=== PATIENT | male | born 1955 | race Caucasian/White ===

== ENCOUNTER 2021-11-29 09:07 | Inpatient (IN) | payer MEDICARE, OTHER ==
[2021-11-29] MEDS ORDERED: IPRATROPIUM BROM 0.5MG/2.5ML ONE (09:39)
[2021-11-29] MEDS ORDERED: METHYLPREDNISOLONE 125 MG INJ ONE (09:39)
[2021-11-29] MEDS ORDERED: ALBUTEROL 2.5 MG/3 ML NEB SOL ONE (09:39)
[2021-11-29] MEDS ORDERED: FAMOTIDINE 20 MG/2 ML VIAL IV ONE ×2 (09:40→21:00)
[2021-11-29] MEDS ORDERED: Levofloxacin500mg IV 500 MG/100 ML BAG IV ONE (09:40)
[2021-11-29 09:58] LABS: Absolute Lymphocytes (CBC) 0.8 K/uL (0.7-4.9); Hematocrit 37.4 % (39.6-49.0); Lymphocytes % 16.2 % (15.3-44.8); MPV 8.5 fL (7.6-11.3); RBC Red Blood Cell Count 4.53 M/uL (4.33-5.43)
[2021-11-29 10:17] LABS: ALT/SGPT 25 U/L (12-78); AST/SGOT 18 U/L (15-37); Albumin 3.1 g/dL (3.4-5.0); Alkaline Phosphatase 78 U/L (45-117); BUN Blood Urea Nitrogen 17 mg/dL (7-18); Bicarbonate 28 mmol/L (21-32); Bilirubin Direct 0.2 mg/dL (0-0.2); Bilirubin Total 0.4 mg/dL (0.2-1.0); Glucose Level 106 mg/dL (74-106); Magnesium 1.9 mg/dL (1.8-2.4); NT PRO-BNP 55 pg/mL (<125); Potassium 4.2 mmol/L (3.5-5.1); Protein, Total 7.1 g/dL (6.4-8.2); Sodium Level 138 mmol/L (136-145); Troponin High Sensitivity 8.3 pg/mL (<58.9)
--- NOTE | 2021-11-29 10:33 | ER ---
Nurse's Notes [facility] Name: Fuentes Yarbrough Jr Age: 66 yrs Sex: Male : 1955 Arrival Date: 11/29/2021 Time: 09:08 Bed 17 Private MD: Diagnosis: COPD/ Chronic obstructive pulmonary disease with (acute) exacerbation;Hypoxemia;Coronavirus infection, unspecified;Pneumonia due to SARS-associated coronavirus Presentation: 11/29 09:12 Chief complaint: Patient states: SOB and nonproductive cough x 1 week ago. Tachypnea aa5 noted during triage. 09:12 Onset of symptoms was November 2021. aa5 09:12 Acuity: DANAY 2 aa5 09:12 Initial Sepsis Screen: Does the patient meet any 2 criteria? RR > 20 per min. HR > 90 aa5 bpm. Yes Does the patient have a suspected source of infection? Yes: If YES to both, name of provider notified: Luís Shepherd MD. Risk Assessment: Do you want to hurt yourself or someone else? Patient reports no desire to harm self or others. 09:12 Coronavirus screen: cough unrelated to allergies, shortness of breath. Ebola Screen: No aa5 symptoms or risks identified at this time. 09:12 Method Of Arrival: Ambulatory aa5 Historical: - Allergies: 09:36 No Known Allergies; aa5 - PMHx: 09:36 COPD; aa5 - Immunization history:: Client reports receiving the 2nd dose of the Covid vaccine, Flu vaccine is up to date. - Social history:: Smoking status: Patient/guardian denies using tobacco. Screenin:35 Abuse screen: Denies threats or abuse. Denies injuries from another. Nutritional ww screening: No deficits noted. Tuberculosis screening: No symptoms or risk factors identified. Fall Risk None identified. Assessment: 09:35 General: Appears uncomfortable, Behavior is cooperative. Pain: Complains of pain in ww back. Neuro: Level of Consciousness is awake, alert, obeys commands, Oriented to person, place, time, situation, Moves all extremities. Speech is normal. Cardiovascular: Capillary refill Patient's skin is warm and dry. Rhythm is regular Chest pain is denied. Respiratory: Airway is patent Respiratory effort is labored, Respiratory pattern is regular, Breath sounds are coarse. GI: No signs and/or symptoms were reported involving the gastrointestinal system. Abdomen is round non-distended. EENT: No signs and/or symptoms were reported regarding the EENT system. Derm: Skin is intact, Skin is pink, warm \T\ dry. 10:28 Reassessment: Patient appears in no apparent distress at this time. No changes from ww previously documented assessment. Patient and/or family updated on plan of care and expected duration. Pain level reassessed. Patient is alert, oriented x 3, equal unlabored respirations, skin warm/dry/pink. Dr. Shepherd at bedside, informed patient of being admitted. 11:34 Reassessment: Patient appears in no apparent distress at this time. No changes from ww previously documented assessment. Patient and/or family updated on plan of care and expected duration. Pain level reassessed. Patient is alert, oriented x 3, equal unlabored respirations, skin warm/dry/pink. Hospitalist at bedside. 12:57 Reassessment: Patient appears in no apparent distress at this time. No changes from ww previously documented assessment. Patient and/or family updated on plan of care and expected duration. Pain level reassessed. Patient is alert, oriented x 3, equal unlabored respirations, skin warm/dry/pink. requesterd lunch tray. Patient informed. 13:34 Reassessment: Patient appears in no apparent distress at this time. No changes from ww previously documented assessment. Patient and/or family updated on plan of care and expected duration. Pain level reassessed. Patient is alert, oriented x 3, equal unlabored respirations, skin warm/dry/pink. 14:24 Reassessment: Patient appears in no apparent distress at this time. No changes from ww previously documented assessment. Patient and/or family updated on plan of care and expected duration. Pain level reassessed. Patient is alert, oriented x 3, equal unlabored respirations, skin warm/dry/pink. Patients back is bothering him from the bed, place patient in bedside side with table in front, eating his lunch. 15:10 Reassessment: Patient appears in no apparent distress at this time. No changes from ww previously documented assessment. Patient and/or family updated on plan of care and expected duration. Pain level reassessed. Patient is alert, oriented x 3, equal unlabored respirations, skin warm/dry/pink. 16:51 Reassessment: Patient appears in no apparent distress at this time. No changes from ww previously documented assessment. Patient and/or family updated on plan of care and expected duration. Pain level reassessed. Patient is alert, oriented x 3, equal unlabored respirations, skin warm/dry/pink. Report called to Lyndsey, patient going to room 223. Vital Signs: 09:12 BP 108 / 55; Pulse 100; Resp 30 S; Temp 98.9(O); Pulse Ox 87% on R/A; Weight 105.69 kg aa5 (R); Height 5 ft. 10 in. (177.80 cm) (R); 09:15 BP 108 / 55; Pulse 89; Resp 22; Pulse Ox 94% ; ww 09:19 Resp 24 S; Pulse Ox 95% on 2 lpm NC; aa5 10:46 BP 99 / 70; Pulse 91; Resp 16; Pulse Ox 96% on 2 lpm NC; ww 11:00 BP 125 / 70; Pulse 95; Resp 20; Pulse Ox 92% on 2 lpm NC; ww 12:30 BP 98 / 63; Pulse 91; Resp 17; Pulse Ox 94% on 3 lpm NC; ww 13:00 BP 102 / 65; Pulse 81; Resp 19; Pulse Ox 94% on R/A; ww 14:30 BP 108 / 59; Pulse 75; Resp 16; Pulse Ox 94% on 3 lpm NC; ww 15:11 BP 126 / 76; Pulse 90; Resp 17; Pulse Ox 94% on 2 lpm NC; ww 09:12 Body Mass Index 33.43 (105.69 kg, 177.80 cm) aa5 ED Course: 09:08 Patient arrived in ED. am2 09:12 Arm band placed on. aa5 09:14 Luís Shepherd MD is Attending Physician. [facility] 09:26 Breanna Das, RN is Primary Nurse. ww 09:33 Triage completed. aa5 09:35 Inserted saline lock: 20 gauge in left antecubital area, using aseptic technique. Blood ww collected. 09:53 EKG done, by ED staff, reviewed by Luís Shepherd MD COVID swab sent to lab. zm 09:54 Patient has correct armband on for positive identification. Placed in gown. Bed in low zm position. Call light in reach. Side rails up X2. Warm blanket given. Pillow given. front desk monitor on. Pulse ox on. NIBP on. 10:19 Second set of blood cultures drawn. ww 10:27 Yonny Pepe is Hospitalizing Provider. [facility] 10:54 XRAY Chest (1 view) In Process Unspecified. EDVA 16:51 No provider procedures requiring assistance completed. Patient admitted, IV remains in ww place. Administered Medications: 09:45 Drug: Pepcid (famotidine) 20 mg Route: IVP; Site: left antecubital; ww 09:50 Drug: SOLU-Medrol (methylPrednisoLONE) 125 mg Route: IVP; Site: left antecubital; ww 09:52 Drug: Albuterol - atroVENT (ipratropium) (3:1) (2.5 mg - 0.5 mg) 3 ml Route: Nebulizer; ww 10:24 Drug: levofloxacin 500 mg Volume: 100 ml; Route: IVPB; Infused Over: 60 mins; Site: ww left antecubital; 10:42 Drug: Xopenex (levalbuterol) 1.25 mg Route: Inhalation; jl7 10:43 Drug: fentaNYL (PF) 50 mcg Route: IVP; Site: left antecubital; jl7 10:43 Drug: Zofran (Ondansetron) 4 mg Route: IVP; Site: left antecubital; jl7 12:29 Drug: Magnesium Sulfate 2 grams Route: IVPB; Infused Over: 2 hrs; Site: left ww antecubital; 12:29 Drug: Lovenox (enoxaparin) 40 mg Route: Sub-Q; Site: left lower abdomen; ww Outcome: 10:33 Decision to Hospitalize by Provider. [facility] 16:51 Admitted to Med/surg room 223, with oxygen, with chart, Report called to Lyndsey 16:51 Condition: stable 16:51 Instructed on the need for admit. 18:03 Patient left the ED. ww Signatures: Dispatcher [employer] EDMS Luís Shepherd MD MD cha Calderon, Audri, RN RN aa5 Vida Yancey RN RN jl7 Xiao Uriostegui am2 Breanna Das RN RN Eleonora Serra Corrections: (The following items were deleted from the chart) 09:37 09:12 Initial Sepsis Screen: Does the patient meet any 2 criteria? RR > 20 per min. HR aa5 > 90 bpm. Yes Does the patient have a suspected source of infection? Yes: aa5
--- NOTE | 2021-11-29 10:34 | EDPHYS ---
Physician Documentation [facility] Name: Fuentes Yarbrough Jr Age: 66 yrs Sex: Male : 1955 Arrival Date: 11/29/2021 Time: 09:08 Bed 17 Private MD: ED Physician Luís Shepherd HPI: 11/29 10:23 This 66 yrs old Male presents to ER via Ambulatory with complaints of pilar Breathing Difficulty. 10:23 The patient has shortness of breath at rest, with light activity. Onset: The pilar symptoms/episode began/occurred 3 day(s) ago. Duration: The symptoms are continuous, and are steadily getting worse. The patient's shortness of breath is aggravated by coughing, supine position, talking, walking, is alleviated by elevating head, nebulizer treatment, application of supplemental oxygen. Associated signs and symptoms: Pertinent positives: non-productive cough. Severity of symptoms: At their worst the symptoms were moderate in the emergency department the symptoms are unchanged. The patient has experienced similar episodes in the past, multiple times. Historical: - Allergies: 09:36 No Known Allergies; aa5 - PMHx: 09:36 COPD; aa5 - Immunization history:: Client reports receiving the 2nd dose of the Covid vaccine, Flu vaccine is up to date. - Social history:: Smoking status: Patient/guardian denies using tobacco. ROS: 10:23 Constitutional: Negative for fever, chills, and weight loss, Eyes: Negative for injury, pilar pain, redness, and discharge, ENT: Negative for injury, pain, and discharge, Neck: Negative for injury, pain, and swelling, Cardiovascular: Negative for chest pain, palpitations, and edema, Abdomen/GI: Negative for abdominal pain, nausea, vomiting, diarrhea, and constipation, Back: Negative for injury and pain, : Negative for injury, bleeding, discharge, and swelling, MS/Extremity: Negative for injury and deformity, Skin: Negative for injury, rash, and discoloration, Neuro: Negative for headache, weakness, numbness, tingling, and seizure, Psych: Negative for depression, anxiety, suicide ideation, homicidal ideation, and hallucinations, Allergy/Immunology: Negative for hives, rash, and allergies, Endocrine: Negative for neck swelling, polydipsia, polyuria, polyphagia, and marked weight changes, Hematologic/Lymphatic: Negative for swollen nodes, abnormal bleeding, and unusual bruising. 10:23 Respiratory: Positive for cough, with no reported sputum, shortness of breath, at rest. Exam: 10:23 Constitutional: This is a well developed, well nourished patient who is awake, alert, pilar and in no acute distress. Head/Face: Normocephalic, atraumatic. Eyes: Pupils equal round and reactive to light, extra-ocular motions intact. Lids and lashes normal. Conjunctiva and sclera are non-icteric and not injected. Cornea within normal limits. Periorbital areas with no swelling, redness, or edema. ENT: Nares patent. No nasal discharge, no septal abnormalities noted. Tympanic membranes are normal and external auditory canals are clear. Oropharynx with no redness, swelling, or masses, exudates, or evidence of obstruction, uvula midline. Mucous membranes moist. Neck: Trachea midline, no thyromegaly or masses palpated, and no cervical lymphadenopathy. Supple, full range of motion without nuchal rigidity, or vertebral point tenderness. No Meningismus. Chest/axilla: Normal chest wall appearance and motion. Nontender with no deformity. No lesions are appreciated. Cardiovascular: Regular rate and rhythm with a normal S1 and S2. No gallops, murmurs, or rubs. Normal PMI, no JVD. No pulse deficits. Abdomen/GI: Soft, non-tender, with normal bowel sounds. No distension or tympany. No guarding or rebound. No evidence of tenderness throughout. Back: No spinal tenderness. No costovertebral tenderness. Full range of motion. Male : Normal genitalia with no discharge or lesions. Skin: Warm, dry with normal turgor. Normal color with no rashes, no lesions, and no evidence of cellulitis. MS/ Extremity: Pulses equal, no cyanosis. Neurovascular intact. Full, normal range of motion. Neuro: Awake and alert, GCS 15, oriented to person, place, time, and situation. Cranial nerves II-XII grossly intact. Motor strength 5/5 in all extremities. Sensory grossly intact. Cerebellar exam normal. Normal gait. Psych: Awake, alert, with orientation to person, place and time. Behavior, mood, and affect are within normal limits. 10:23 Respiratory: the patient does not display signs of respiratory distress, Respirations: labored breathing, that is mild, Breath sounds: decreased breath sounds, that are moderate, are scattered, rhonchi, that are mild, stridor, is not appreciated, wheezing: inspiratory expiratory is heard diffusely. 11:22 ECG was reviewed by the Attending Physician. [facility] Vital Signs: 09:12 BP 108 / 55; Pulse 100; Resp 30 S; Temp 98.9(O); Pulse Ox 87% on R/A; Weight 105.69 kg aa5 (R); Height 5 ft. 10 in. (177.80 cm) (R); 09:15 BP 108 / 55; Pulse 89; Resp 22; Pulse Ox 94% ; ww 09:19 Resp 24 S; Pulse Ox 95% on 2 lpm NC; aa5 10:46 BP 99 / 70; Pulse 91; Resp 16; Pulse Ox 96% on 2 lpm NC; ww 11:00 BP 125 / 70; Pulse 95; Resp 20; Pulse Ox 92% on 2 lpm NC; ww 12:30 BP 98 / 63; Pulse 91; Resp 17; Pulse Ox 94% on 3 lpm NC; ww 13:00 BP 102 / 65; Pulse 81; Resp 19; Pulse Ox 94% on R/A; ww 14:30 BP 108 / 59; Pulse 75; Resp 16; Pulse Ox 94% on 3 lpm NC; ww 15:11 BP 126 / 76; Pulse 90; Resp 17; Pulse Ox 94% on 2 lpm NC; ww 09:12 Body Mass Index 33.43 (105.69 kg, 177.80 cm) aa MDM: 09:14 Patient medically screened. [facility] 10:25 Differential diagnosis: asthma, Bronchitis CHF exacerbation, Chronic Obstructive pilar Pulmonary Disease obstructed airway, bronchitis, flu, URI, pneumonia, pulmonary edema, reactive airway disease. Antibiotic administration: Levaquin given. The patient's Wells Deep Vein Thrombosis Score was calculated as follows: Heart Rate >100 BPM (1.5 Pts) Total Score: 0-2 Pts- Low Risk. The patient's pulmonary embolism risk score was calculated as follows: Total Score: 0-2 points. This patient was found to be at low risk for a pulmonary embolism by using the Well's assessment criteria. Immunization status: Pneumococcal vaccine: Influenza vaccine: Data reviewed: vital signs, nurses notes, lab test result(s), EKG, radiologic studies, plain films. Data interpreted: director post: rate is 100 beats/min, rhythm is regular, Pulse oximetry: on room air is 95 %. Test interpretation: by ED physician or midlevel provider: ECG, plain radiologic studies. Counseling: I had a detailed discussion with the patient and/or guardian regarding: the historical points, exam findings, and any diagnostic results supporting the discharge/admit diagnosis, lab results, radiology results, the need for further work-up and treatment in the hospital. 11/29 09:16 Order name: Basic Metabolic Panel; Complete Time: 11:18 11/29 09:16 Order name: CBC with Diff; Complete Time: 11:18 [facility] 11/29 09:16 Order name: LFT's; Complete Time: 11:18 11/29 09:16 Order name: Magnesium; Complete Time: 11:18 11/29 09:16 Order name: NT PRO-BNP; Complete Time: 11:18 11/29 09:16 Order name: PT-INR; Complete Time: 11:18 11/29 09:16 Order name: Troponin HS; Complete Time: 11:18 [facility] 11/29 09:16 Order name: XRAY Chest (1 view); Complete Time: 11:18 [facility] 11/29 09:16 Order name: Blood Culture Adult (2) 11/29 09:16 Order name: Lactate; Complete Time: 11:18 11/29 09:16 Order name: COVID-19/FLU A+B/RSV (Document "Date of Onset" if Symptomatic); Complete [facility] Time: 14:22 11/29 09:16 Order name: EKG; Complete Time: 09:17 11/29 09:16 Order name: Cardiac monitoring; Complete Time: 09:52 11/29 09:16 Order name: EKG - Nurse/Tech; Complete Time: 09:52 11/29 09:16 Order name: IV Saline Lock; Complete Time: 09:52 11/29 09:16 Order name: Labs collected and sent; Complete Time: 09:52 11/29 09:16 Order name: O2 Per Protocol; Complete Time: 09:52 11/29 09:16 Order name: O2 Sat Monitoring; Complete Time: 09:53 11/29 13:51 Order name: Diet Heart Healthy; Complete Time: 13:52 ww EC:22 Rate is 94 beats/min. Rhythm is regular. QRS [place] is Normal. MS interval is normal. QRS pilar interval is normal. QT interval is normal. No Q waves. T waves are Normal. No ST changes noted. Clinical impression: NSR w/ Non-specific ST/T Changes and No evidence of ischemia. Interpreted by me. Reviewed by me. Administered Medications: 09:45 Drug: Pepcid (famotidine) 20 mg Route: IVP; Site: left antecubital; ww 09:50 Drug: SOLU-Medrol (methylPrednisoLONE) 125 mg Route: IVP; Site: left antecubital; ww 09:52 Drug: Albuterol - atroVENT (ipratropium) (3:1) (2.5 mg - 0.5 mg) 3 ml Route: Nebulizer; ww 10:24 Drug: levofloxacin 500 mg Volume: 100 ml; Route: IVPB; Infused Over: 60 mins; Site: ww left antecubital; 10:42 Drug: Xopenex (levalbuterol) 1.25 mg Route: Inhalation; jl7 10:43 Drug: fentaNYL (PF) 50 mcg Route: IVP; Site: left antecubital; jl7 10:43 Drug: Zofran (Ondansetron) 4 mg Route: IVP; Site: left antecubital; jl7 12:29 Drug: Magnesium Sulfate 2 grams Route: IVPB; Infused Over: 2 hrs; Site: left ww antecubital; 12:29 Drug: Lovenox (enoxaparin) 40 mg Route: Sub-Q; Site: left lower abdomen; ww Disposition Summary: 11/29/21 10:33 Hospitalization Ordered Hospitalization Status: Inpatient Admission pilar Provider: Yonny Pepe cha Location: Telemetry/MedSurg (Inpatient) pilar Condition: Fair pilar Problem: new pilar Symptoms: have improved pilar Bed/Room Type: Standard pilar Room Assignment: 223(11/29/21 16:26) ww Diagnosis - COPD/ Chronic obstructive pulmonary disease with (acute) exacerbation pilar - Hypoxemia pilar - Coronavirus infection, unspecified pilar - Pneumonia due to SARS-associated coronavirus pilar Forms: - Medication Reconciliation Form pilar - SBAR form pilar Signatures: Dispatcher [employer] EDLauren Ansari Corey, MD MD cha Calderon, Audri, RN RN aa5 Vida Yancey RN RN jl7 Breanna Das RN RN ww Corrections: (The following items were deleted from the chart) 15:59 10:33 [facility] 16:26 15:59 [facility]
[2021-11-29] MEDS ORDERED: LEVALBUTEROL 1.25 MG/3 ML NEB ONE (10:37)
[2021-11-29] MEDS ORDERED: ONDANSETRON 4 MG/2 ML VIAL ONE (10:37)
[2021-11-29] MEDS ORDERED: FENTANYL CITR 100 MCG/2 ML ONE (10:37)
[2021-11-29] MEDS ORDERED: Magnesium Sulfate 2gm IVPB 2 G/50 ML BAG IV ONE (10:38)
--- NOTE | 2021-11-29 11:13 | RAD REPORT ---
EXAM DESCRIPTION: RAD - Chest Single View - 11/29/2021 10:53 am CLINICAL HISTORY: COUGH COMPARISON: Chest Pa And Lat (2 Views) dated 05/28/2021; Chest Pa And Lat (2 Views) dated 09/11/2020; C HEST SINGLE VIEW dated 06/22/2015; CHEST SINGLE VIEW dated 10/17/2014 FINDINGS: Lines: None. Lungs: No evidence of edema or pneumonia. Pleural: No significant pleural effusions or pneumothorax. Cardiac: The heart size is within normal limits. Bones: No acute fractures. Other: IMPRESSION: No acute cardiopulmonary disease.
[2021-11-29 11:48] LABS: SARS-COV-2 RT PCR POSITIVE (NEGATIVE)
--- NOTE | 2021-11-29 12:18 | P.HP ---
Certification for Inpatient Patient admitted to: Observation With expected LOS: <2 Midnights Practitioner: I am a practitioner with admitting privileges, knowledge of patient current condition, hospital course, and medical plan of care. Services: Services provided to patient in accordance with Admission requirements found in Title 42 Section 412.3 of the Code of Federal Regulations Patient History Date of Service: 11/29/21 Reason for admission: Shortness of breath History of Present Illness: 66-year-old gentleman with a history of COPD presented to the emergency department with a complaint of progressive shortness of breath, coughing and wheezing. Patient reported nonproductive cough. Symptoms preceded by nasal congestion, flulike symptoms. Patient mentioned he tested positive for rapid Covid test at home. He stated he is fully vaccinated for COVID and has received flu vaccine this season. Patient was hypoxic on room air with oxygen saturation of 87% on arrival to the ED. Oxygen saturation improved to 95% on 2 L oxygen by nasal cannula. Chest x-ray demonstrated no acute disease. Covid PCR test is pending. Patient is hospitalized for further management. Allergies No Known Allergies Allergy (Verified 05/28/21 13:17) Home Medications: Albuterol Sulfate [Proair Hfa] 8.5 gm IH DAILY PRN 06/22/15 Budesonide/Formoterol Fumarate [Symbicort 160-4.5 Mcg Inhaler] 1 puff IH DAILY 06/22/15 Ipratropium/Albuterol Sulfate [Iprat-Albut 0.5-3(2.5) mg/3 ml] 3 ml IH Q4HP PRN 06/22/15 Fluticasone/Umeclidin/Vilanter [Trelegy Ellipta 200-62.5-25] 1 each IH DAILY 05/28/21 predniSONE [Deltasone] 10 mg PO DAILY 05/28/21 - Past Medical/Surgical History Diabetic: No -: COPD -: lumbar herniations -: abd hernia - Family History Mother -: Lung disease Notes: emphysema Father -: Lung disease Notes: emphysema, TB Sister -: Cancer Notes: breast CA - Social History Alcohol use: No CD- Drugs: No Caffeine use: Yes Review of Systems Other: Patient denies any fever. He denies any chest pain, no nausea or vomiting, no abdominal pain. Except as documented, all other systems reviewed and negative. Physical Examination - Physical Exam General: Alert, In no apparent distress, Oriented x3 HEENT: Normocephalic, Mucous membr. moist/pink, Sclerae nonicteric Neck: Supple, JVD not distended Respiratory: Normal air movement, Other (Mild scattered wheezes) Cardiovascular: No edema, Regular rate/rhythm, Normal S1 S2 Gastrointestinal: Normal bowel sounds, Soft and benign, Non-distended, No tenderness Musculoskeletal: No swelling, No tenderness Integumentary: No rashes, No erythema, No cyanosis Neurological: Normal speech, Normal strength at 5/5 x4 extr, Normal reflexes 2+, Normal affect Urinary: Bladder distention - Studies Laboratory Data (last 24 hrs) 11/29/21 09:47: PT 11.0, INR 1.00 11/29/21 09:47: WBC 5.1, Hgb 12.0 L, Hct 37.4 L, Plt Count 173 11/29/21 09:47: Sodium 138, Potassium 4.2, BUN 17, Creatinine 0.84, Glucose 106, Magnesium 1.9, Total Bilirubin 0.4, AST 18, ALT 25, Alkaline Phosphatase 78 Assessment and Plan - Problems (Diagnosis) (1) COVID-19 virus infection Current Visit: Yes Status: Acute (2) Acute respiratory failure with hypoxia Current Visit: Yes Status: Acute (3) COPD exacerbation Onset Date: 06/23/15 Current Visit: No Status: Acute - Plan Place patient under observation on the medical floor. Treat for COPD exacerbation with bronchodilators and IV steroids. No indication for antibiotics at this time. Patient has upper respiratory infection from COVID-19 infection. Chest x-ray shows no acute infiltrate but he is hypoxic. Steroid for COVID-19 infection. Consult to pulmonary. Wean off oxygen as possible. - Advance Directives Does patient have a Living Will: No Does patient have a Durable POA for Healthcare: No
[2021-11-29] MEDS ORDERED: ENOXAPARIN 40 MG/0.4 ML SQ ONE (12:23)
[2021-11-29] MEDS ORDERED: ONDANSETRON 4 MG/2 ML VIAL IV PRN (13:50)
[2021-11-29 15:41] VITALS: BMI 33.4
[2021-11-29] MEDS: METHYLPREDNISOLONE 40 MG INJ IV SCH ×2 (18:21→23:51)
[2021-11-29] MEDS: ACETAMINOPHEN 500 MG TAB PO PRN (18:21)
[2021-11-29] MEDS: ALBUTEROL 2.5 MG/3 ML NEB SOL NEB PRN (19:15)
[2021-11-29] MEDS: IPRATROPIUM BROM 0.5MG/2.5ML NEB PRN (19:15)
[2021-11-29] MEDS ORDERED: TRAZODONE 150 MG TAB PO PRN (21:00)
[2021-11-29] MEDS: TRAZODONE 50 MG TABLET PO PRN (21:47)
[2021-11-30 04:40] LABS: Absolute Lymphocytes (CBC) 0.2 K/uL (0.7-4.9); Hematocrit 35.8 % (39.6-49.0); Lymphocytes % 13.5 % (15.3-44.8); MPV 8.8 fL (7.6-11.3)
[2021-11-30 05:08] LABS: Magnesium 2.4 mg/dL (1.8-2.4); Phosphorus 3.3 mg/dL (2.5-4.9); Potassium 4.7 mmol/L (3.5-5.1)
[2021-11-30 05:33] LABS: Blood Morphology Comment NOT SEEN (NOT SEEN); Platelet Estimate ADEQ; White Blood Cell Scan OK (OK)
[2021-11-30] MEDS: METHYLPREDNISOLONE 40 MG INJ IV SCH ×3 (06:30→16:20)
--- NOTE | 2021-11-30 06:46 | P.PN ---
Date of Service: 11/30/21 Subjective: reports minimal change, feels short of breath, wheezing, +cough unable to cough anything out, feels congested in chest ROS: 10 point ROS as noted above, otherwise negative Physical exam GEN: Alert, oriented, NAD HEENT: Normal conjunctiva, sclera anicteric CV: Regular rate and rhythm, no edema Pulm: crackles with b/l wheeze, Non-labored respirations on 3L NC ABD: Soft, nontender, nondistended Integumentary: No rashes Neuro: Normal speech, normal affect Problem List Acute on chronic hypoxemic respiratory failure secondary to COVID-19 pneumonia and COPD exacerbation Acute on chronic COPD exacerbation GERD on 3L NC, wean as tolerated patient uses 2 to 2.5L NC at nighttime at homem CRP elevated continue steroids for COVID and COPD continue nebs / bronchodilators Pulmonology consulted ambulate as tolerated WBC decreased, suspect secondary to COVID pneumonia repeat labs and CXR in AM VTE: lovenox Code: industrial engineering director Spent Managing Pts Care (In Minutes): 35
[2021-11-30 07:51] LABS: C-Reactive Protein 38.1 mg/L (<3.00)
[2021-11-30] MEDS: ENOXAPARIN 40 MG/0.4 ML SQ SCH (08:08)
[2021-11-30] MEDS: IPRATROPIUM BROM 0.5MG/2.5ML NEB PRN (08:34)
[2021-11-30] MEDS: ALBUTEROL 2.5 MG/3 ML NEB SOL NEB PRN ×2 (08:34→14:05)
[2021-11-30] MEDS: ACETAMINOPHEN 500 MG TAB PO PRN (11:08)
[2021-11-30] MEDS: PANTOPRAZOLE 40MG TABLET PO SCH (11:58)
[2021-11-30] MEDS ORDERED: TRAMADOL HCL 50 MG TAB PO PRN (12:00)
--- NOTE | 2021-11-30 12:36 | EKG ---
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
--- NOTE | 2021-11-30 12:45 | P.CNS ---
Date of Consult: 11/30/21 Reason for Consult: COPD exacerbation Chief Complaint: Shortness of breath History of Present Illness: Patient is 66 years of age a history of COPD admitted with worsening cough congestion shortness of breath for the past 2 weeks had prescribed some antibiotics continue to get worse and it appeared in the hospital he still wheezing quite a bit Allergies No Known Allergies Allergy (Verified 05/28/21 13:17) Home Medications: Albuterol Sulfate [Proair Hfa] 8.5 gm IH DAILY PRN 06/22/15 Ipratropium/Albuterol Sulfate [Iprat-Albut 0.5-3(2.5) mg/3 ml] 3 ml IH Q4HP PRN 06/22/15 predniSONE [Deltasone] 10 mg PO DAILY 05/28/21 Omeprazole [Prilosec] 40 mg PO DAILY 11/29/21 Trazodone [Desyrel] 150 mg PO BEDTIME PRN 11/29/21 traMADol HCL [Ultram*] 1 tab PO BID PRN 11/29/21 - Past Medical/Surgical History Diabetic: No -: COPD -: lumbar herniations -: abd hernia - Family History Mother Medical History: Lung disease Notes: emphysema Father Medical History: Lung disease Notes: emphysema, TB Sister Medical History: Cancer Notes: breast CA - Social History Smoking Status: Current some day smoker Alcohol use: No CD- Drugs: No Caffeine use: Yes Place of Residence: Home Review of Systems 10-point ROS is otherwise unremarkable Respiratory: Cough, Shortness of Breath Physical Examination Temp Pulse Resp BP Pulse Ox 97.7 F 76 18 116/64 96 11/30/21 12:00 11/30/21 12:00 11/30/21 12:00 11/30/21 12:00 11/30/21 12:00 General: Alert, Oriented x3, Mild distress Respiratory: Expiratory wheezes Cardiovascular: No edema, Regular rate/rhythm, Normal S1 S2 Gastrointestinal: Normal bowel sounds, Soft and benign Musculoskeletal: No clubbing, No swelling Integumentary: No rashes, No breakdown - Problems (1) COPD exacerbation Onset Date: 06/23/15 Current Visit: No Status: Acute Plan: Patient is 66 years of age admitted with COPD exacerbation failed outpatient therapy continue with steroids bronchodilators and levofloxacin sputum cultures chest x-ray shows COPD changes patient white count has decreased vital signs stable oxygenation satisfactory
[2021-11-30] MEDS: IPRATROPIUM BROM 0.5MG/2.5ML NEB SCH ×3 (13:00→20:40)
[2021-11-30 13:08] LABS: Urine Appearance Clear (Clear); Urine Bilirubin Negative (Negative); Urine Blood Negative (Negative); Urine Color Yellow (Yellow); Urine Glucose 3+ (Negative); Urine Protein 2+ (Negative); Urine Specific Gravity 1.025 (1.005-1.030); Urine pH 6.5 (5.0-7.0)
[2021-11-30] MEDS: levoFLOXacin 750 MG TAB PO SCH (13:13)
[2021-11-30 13:17] LABS: Urine Microscopic Reflex ORDER UMIC
[2021-11-30 13:41] LABS: Urine Bacteria <20 /HPF (NONE SEEN); Urine RBC NONE SEEN /HPF (NONE SEEN)
[2021-11-30] MEDS ORDERED: FAMOTIDINE 20 MG/2 ML VIAL IV ONE (21:00)
[2021-11-30] MEDS: TRAZODONE 50 MG TABLET PO PRN (21:39)
[2021-12-01] MEDS: METHYLPREDNISOLONE 40 MG INJ IV SCH ×2 (00:18→08:15)
[2021-12-01] MEDS: IPRATROPIUM BROM 0.5MG/2.5ML NEB SCH ×3 (02:00→08:32)
[2021-12-01] MEDS: ALBUTEROL 2.5 MG/3 ML NEB SOL NEB PRN (03:35)
[2021-12-01 03:49] LABS: Absolute Lymphocytes (CBC) 0.3 K/uL (0.7-4.9); Hematocrit 34.3 % (39.6-49.0); Lymphocytes % 3.7 % (15.3-44.8); MPV 9.1 fL (7.6-11.3); RBC Red Blood Cell Count 4.14 M/uL (4.33-5.43)
[2021-12-01 04:08] LABS: BUN Blood Urea Nitrogen 16 mg/dL (7-18); Bicarbonate 29 mmol/L (21-32); Ferritin 41.8 ng/mL (26-388); Glucose Level 164 mg/dL (74-106); Magnesium 2.2 mg/dL (1.8-2.4); Potassium 4.4 mmol/L (3.5-5.1); Sodium Level 138 mmol/L (136-145)
[2021-12-01 04:30] LABS: Blood Morphology Comment NOT SEEN (NOT SEEN); Platelet Estimate ADEQ
[2021-12-01] MEDS: PANTOPRAZOLE 40MG TABLET PO SCH (06:34)
[2021-12-01] MEDS: levoFLOXacin 750 MG TAB PO SCH (08:15)
[2021-12-01] MEDS: ENOXAPARIN 40 MG/0.4 ML SQ SCH (08:16)
--- NOTE | 2021-12-01 08:40 | P.DS ---
Admission Date: 11/30/21 Discharge Date: 12/01/21 Disposition: ROUTINE DISCHARGE Reason for Admission: Shortness of breath Consultations: Pulmonology - Dr. Stauffer Procedures: Problem List Acute on chronic hypoxemic respiratory failure secondary to COVID-19 pneumonia and COPD exacerbation Acute on chronic COPD exacerbation, on home O2 GERD Brief History of Present Illness: 66yo M, PMH: COPD on home O2 - 2L NC at night. Fully vaccinated for COVID. Presented to ED with progressively worsening SOB, cough, wheeze, and recent COVID+ home test. He was found to be hypoxic on room air to 87% in the ED and COVID+. He was admitted for COPD exacerbation and COVID-19 pneumonia. Hospital Course: Patient was found to have an acute COPD exacerbation and mild COVID-19 pneumonia. He improved with nebulizers and steroids. Inflammatory markers improved. Pulmonology was consulted and recommended addition of levaquin. Discharged home with levaquin and prednisone. To continue using home oxygen as needed, goal oxygen saturation 92-94%. Follow up with Dr. Stauffer in ~1 week. Vital Signs/Physical Exam: Temp Pulse Resp BP Pulse Ox 98.3 F 78 16 139/62 97 12/01/21 04:00 12/01/21 04:00 12/01/21 04:00 12/01/21 04:00 12/01/21 04:00 Physical exam GEN: Alert, oriented, NAD HEENT: Normal conjunctiva, sclera anicteric CV: Regular rate and rhythm, no edema Pulm: minimal wheeze, good air movement, non-labored respirations on 2L NC ABD: Soft, nontender, nondistended Neuro: Normal speech, normal affect Laboratory Data at Discharge: WBC 6.9 K/uL (4.3-10.9) D 12/01/21 03:27 Hgb 11.1 g/dL (13.6-17.9) L 12/01/21 03:27 Hct 34.3 % (39.6-49.0) L 12/01/21 03:27 Plt Count 206 K/uL (152-406) D 12/01/21 03:27 PT 11.0 SECONDS (9.5-12.5) 11/29/21 09:47 INR 1.00 11/29/21 09:47 Sodium 138 mmol/L (136-145) 12/01/21 03:27 Potassium 4.4 mmol/L (3.5-5.1) 12/01/21 03:27 BUN 16 mg/dL (7-18) 12/01/21 03:27 Creatinine 0.78 mg/dL (0.55-1.3) 12/01/21 03:27 Glucose 164 mg/dL (74-106) H 12/01/21 03:27 Phosphorus 3.3 mg/dL (2.5-4.9) 11/30/21 04:17 Magnesium 2.2 mg/dL (1.8-2.4) 12/01/21 03:27 Total Bilirubin 0.4 mg/dL (0.2-1.0) 11/29/21 09:47 AST 18 U/L (15-37) 11/29/21 09:47 ALT 25 U/L (12-78) 11/29/21 09:47 Alkaline Phosphatase 78 U/L (45-117) 11/29/21 09:47 Home Medications: Albuterol Sulfate [Proair Hfa] 8.5 gm IH DAILY PRN 06/22/15 Ipratropium/Albuterol Sulfate [Iprat-Albut 0.5-3(2.5) mg/3 ml] 3 ml IH Q4HP PRN 06/22/15 predniSONE [Deltasone*] 10 mg PO DAILY 05/28/21 Omeprazole [Prilosec] 40 mg PO DAILY 11/29/21 Trazodone [Desyrel*] 150 mg PO BEDTIME PRN 11/29/21 traMADol HCL [Ultram*] 1 tab PO BID PRN 11/29/21 Benzonatate [Tessalon Perle] 200 mg PO Q8H PRN 5 Days #15 cap 12/01/21 levoFLOXacin [Levaquin*] 750 mg PO DAILY 6 Days #6 tab 12/01/21 predniSONE [Prednisone] 20 mg PO SEECOM 8 Days #12 tablet 12/01/21 New Medications: levoFLOXacin [Levaquin*] 750 mg PO DAILY 6 Days #6 tab predniSONE [Prednisone] 20 mg PO SEECOM 8 Days #12 tablet Benzonatate [Tessalon Perle] 200 mg PO Q8H PRN 5 Days #15 cap PRN Reason: Cough Physician Discharge Instructions: Patient was found to have an acute COPD exacerbation and mild COVID-19 pneumonia. He improved with nebulizers and steroids. Inflammatory markers improved. Pulmonology was consulted and recommended addition of levaquin. Discharged home with levaquin and prednisone. To continue using home oxygen as needed, goal oxygen saturation 92-94%. Follow up with Dr. Stauffer in ~1 week. Followup: Tal Stauffer MD [ACTIVE - CAN ADMIT] - (Call to schedule appointment) Time spent managing pt's care (in minutes): 45
[2021-12-01 09:27] VITALS: BP 127/59; TEMP 97.1
[2021-12-01 09:59] VITALS: O2SAT 92
== END 2021-12-01 10:30 | disposition home or self-care (01) | DRG 177 ==
LOC: ER 09:07 → ERHOLD 11:57 → 2ND 17:15 → OBSVTOIN 11-30 12:23
PROVIDERS: ADMIT Internal Medicine; ATTEND Hospitalist
DX: U07.1 COVID-19 (principal); J12.82 Pneumonia due to coronavirus disease 2019; J96.21 Acute and chronic respiratory failure with hypoxia; J44.1 Chronic obstructive pulmonary disease with (acute) exacerbation; J44.0 Chronic obstructive pulmonary disease with (acute) lower respiratory infection; K21.9 Gastro-esophageal reflux disease without esophagitis; F17.200 Nicotine dependence, unspecified, uncomplicated; Z79.52 Long term (current) use of systemic steroids; Z79.899 Other long term (current) drug therapy; Z99.81 Dependence on supplemental oxygen
CPT/HCPCS: 0241U; 36415; 71045; 80048; 80076; 81003; 81015; 82728; 83605; 83735; 83880; 84100; 84484; 85025; 85610; 86140; 87040; 87070; 87205; 93005; 94640; 94760; 96372; 96374; 96375; 99285; G0378; J1650; J2405; J2920; J2930; J3010; J3475

== ENCOUNTER 2022-11-16 09:58 | Inpatient (IN) | payer MEDICARE ==
[2022-11-16] MEDS ORDERED: LEVALBUTEROL 1.25 MG/3 ML NEB ONE (10:16)
[2022-11-16] MEDS ORDERED: MAGNESIUM SULFATE 1 gm IVPB 1 GM/100 ML BAG IV ONE (10:16)
[2022-11-16] MEDS ORDERED: METHYLPREDNISOLONE 125 MG INJ ONE (10:16)
[2022-11-16 10:29] LABS: Absolute Lymphocytes (CBC) 0.5 K/uL (0.7-4.9); Hematocrit 35.7 % (39.6-49.0); Lymphocytes % 4.8 % (15.3-44.8); MCV 88.8 fL (80-100); MPV 8.4 fL (7.6-11.3); RBC Red Blood Cell Count 4.02 M/uL (4.33-5.43)
[2022-11-16 10:47] LABS: Potassium 4.6 mmol/L (3.5-5.1); Troponin High Sensitivity 6.2 pg/mL (<58.9)
[2022-11-16 11:11] LABS: SARS-COV-2 RT PCR NEGATIVE (NEGATIVE)
--- NOTE | 2022-11-16 11:48 | ER ---
Nurse's Notes [facility] Name: Fuentes Yarbrough Jr Age: 67 yrs Sex: Male : 1955 Arrival Date: 11/16/2022 Time: 10:04 Bed 3 Private MD: Diagnosis: COPD/ Chronic obstructive pulmonary disease with (acute) exacerbation;Hypoxia Presentation: 11/16 10:04 Chief complaint: EMS states: Sent from Dr. Stauffer's office for COPD exacerbation, pt sg5 c/o SOB and increased home O2 needs x 10 days. DuVicb in process. Coronavirus screen: Client presents with at least one sign or symptom that may indicate coronavirus-19. Standard/surgical mask placed on the client. Provider contacted for isolation considerations. Ebola Screen: No symptoms or risks identified at this time. Initial Sepsis Screen: Does the patient meet any 2 criteria? No. Patient's initial sepsis screen is negative. Does the patient have a suspected source of infection? No. Patient's initial sepsis screen is negative. Risk Assessment: Do you want to hurt yourself or someone else? Patient reports no desire to harm self or others. Onset of symptoms was November 06, 2022. 10:04 Method Of Arrival: EMS: [facility] sg5 10:04 Acuity: DANAY 2 sg5 Triage Assessment: 10:06 General: Appears in no apparent distress. Behavior is calm, cooperative. Pain: Pain sg5 currently is 5 out of 10 on a pain scale. EENT: No signs and/or symptoms were reported regarding the EENT system. Neuro: Level of Consciousness is awake, alert, obeys commands, Oriented to person, place, time, situation. Cardiovascular: Patient's skin is warm and dry. Respiratory: Reports shortness of breath at rest on exertion labored breathing Airway is patent Respiratory effort is labored, shallow, Respiratory pattern is regular, symmetrical. GI: No signs and/or symptoms were reported involving the gastrointestinal system. : No signs and/or symptoms were reported regarding the genitourinary system. Derm: Skin is pink, warm \T\ dry. Musculoskeletal: No signs and/or symptoms reported regarding the musculoskeletal system. Historical: - Allergies: 10:06 No Known Allergies; sg5 - PMHx: 10:06 COPD; sg5 - Immunization history:: Adult Immunizations up to date. - Social history:: Smoking status: Patient/guardian denies using tobacco. Screenin:08 [facility] ED Fall Risk Assessment (Adult) Score/Fall Risk Level 0 - 2 = Low Risk sg5 Oriented to surroundings, Maintained a safe environment. Abuse screen: Denies threats or abuse. Denies injuries from another. Nutritional screening: No deficits noted. Tuberculosis screening: No symptoms or risk factors identified. Assessment: 10:07 General: SEE TRIAGE ASSESSMENT. sg5 10:49 Reassessment: Patient and/or family updated on plan of care and expected duration. Pain hb level reassessed. Patient states symptoms have improved. Vital Signs: 10:04 BP 152 / 72; Pulse 81; Resp 15; Temp 97.8; Pulse Ox 98% on Nebulizer Mask; Weight sg5 108.86 kg; Height 5 ft. 11 in. ; Pain 5/10; 10:49 BP 133 / 76; Pulse 77; Resp 15; Pulse Ox 92% on R/A; hb 11:20 Pulse Ox 87% on R/A; hb 10:04 Body Mass Index 33.47 (108.86 kg, 180.34 cm) sg5 10:04 Pain Scale: Adult sg5 ED Course: 10:04 Patient arrived in ED. 5 10:04 Oleksandr Torrez PA is PHCP. [facility] 10:05 Babak Benavides MD is Attending Physician. [facility] 10:06 Triage completed. sg5 10:06 Arm band placed on. sg5 10:08 Patient has correct armband on for positive identification. sg5 10:10 Veronica Riley RN is Primary Nurse. sg5 10:49 XRAY Chest (1 view) Sent. hb 10:51 XRAY Chest (1 view) In Process Unspecified. EDMS 11:47 Farhad Doll MD is Hospitalizing Provider. [facility] Administered Medications: 10:11 Drug: MethylPrednisoLONE IVP 125 mg Route: IVP; Site: left hand; hb 10:11 Drug: Levalbuterol Inhalation 1.25 mg Route: Inhalation; hb 10:11 Drug: Magnesium Sulfate IVPB 1 grams Route: IVPB; Infused Over: 1 hrs; Site: left hand; hb Outcome: 11:48 Decision to Hospitalize by Provider. [facility] Signatures: Dispatcher [employer] Oleksandr Rabago PA PA jmm Baxter, Heather, RN RN hb Veronica Riley RN RN sg5 Corrections: (The following items were deleted from the chart) 10:54 10:49 BP 133 / 76; Pulse 77bpm; Resp 15bpm; Pulse Ox 93% RA; hb hb
--- NOTE | 2022-11-16 11:48 | EDPHYS ---
Physician Documentation [facility] Name: Fuentes Yarbrough Jr Age: 67 yrs Sex: Male : 1955 Arrival Date: 11/16/2022 Time: 10:04 Bed 3 Private MD: ED Physician Babak Benavides Historical: - Allergies: 11/16 10:06 No Known Allergies; sg5 - PMHx: 10:06 COPD; sg5 - Immunization history:: Adult Immunizations up to date. - Social history:: Smoking status: Patient/guardian denies using tobacco. Vital Signs: 10:04 BP 152 / 72; Pulse 81; Resp 15; Temp 97.8; Pulse Ox 98% on Nebulizer Mask; Weight sg5 108.86 kg; Height 5 ft. 11 in. ; Pain 5/10; 10:49 BP 133 / 76; Pulse 77; Resp 15; Pulse Ox 92% on R/A; hb 11:20 Pulse Ox 87% on R/A; hb 10:04 Body Mass Index 33.47 (108.86 kg, 180.34 cm) sg5 10:04 Pain Scale: Adult sg5 MDM: 10:05 Patient medically screened. [facility] 11/16 10:05 Order name: EKG; Complete Time: 10:05 [facility] 11/16 10:05 Order name: O2 Sat Monitoring; Complete Time: 10:13 [facility] 11/16 10:05 Order name: O2 Per Protocol; Complete Time: 10:13 [facility] 11/16 10:05 Order name: IV Saline Lock; Complete Time: 10:13 [facility] 11/16 10:05 Order name: Cardiac monitoring; Complete Time: 10:13 [facility] 11/16 10:05 Order name: EKG - Nurse/Tech; Complete Time: 10:49 [facility] 11/16 10:05 Order name: Labs collected and sent; Complete Time: 10:49 [facility] 11/16 10:05 Order name: XRAY Chest (1 view) [facility] 11/16 10:05 Order name: Basic Metabolic Panel; Complete Time: 11:10 [facility] 11/16 10:05 Order name: CBC with Diff; Complete Time: 11:10 [facility] 11/16 10:05 Order name: Troponin HS; Complete Time: 11:10 [facility] 11/16 10:07 Order name: COVID-19/FLU A+B; Complete Time: 11:21 [facility] Administered Medications: 10:11 Drug: MethylPrednisoLONE IVP 125 mg Route: IVP; Site: left hand; hb 10:11 Drug: Levalbuterol Inhalation 1.25 mg Route: Inhalation; hb 10:11 Drug: Magnesium Sulfate IVPB 1 grams Route: IVPB; Infused Over: 1 hrs; Site: left hand; hb Disposition Summary: 11/16/22 11:48 Hospitalization Ordered Hospitalization Status: Observation [facility] Provider: Farhad Doll Location: Telemetry/MedSurg (observation) [facility] Condition: Stable [facility] Problem: an acute exacerbation jm Symptoms: are unchanged [facility] Bed/Room Type: Standard [facility] Room Assignment: [facility] Diagnosis - COPD/ Chronic obstructive pulmonary disease with (acute) exacerbation jm - Hypoxia [facility] Forms: - Medication Reconciliation Form jmm - SBAR form [facility] Signatures: Dispatcher [employer] EDOleksandr Lim PA PA m Katherine Valdivia, AURELIANO RN Veronica Riley RN RN sg5
[2022-11-16 12:13] LABS: Anisocytosis SLIGHT; Blood Morphology Comment NOTED (NOT SEEN); Platelet Estimate ADEQ; White Blood Cell Scan OK (OK)
--- NOTE | 2022-11-16 12:24 | RAD REPORT ---
EXAM DESCRIPTION: RADChest Single View11/16/2022 10:49 am CLINICAL HISTORY: SOB COMPARISON: Chest Single View dated 11/29/2021; Chest Pa And Lat (2 Views) dated 05/28/2021; Chest Pa And Lat (2 Views) dated 09/11/2020; CHEST SINGLE VIEW dated 06/22/2015 TECHNIQUE: Portable AP view of the chest. FINDINGS: The lungs are clear.Mild hyperinflation and mild elevation of the left hemidiaphragm, stab le. No pneumothorax or effusion. The cardiomediastinal contours are unremarkable. IMPRESSION: No acute cardiopulmonary process.
[2022-11-16] MEDS ORDERED: TRAMADOL HCL 50 MG TAB PO PRN (12:36)
[2022-11-16] MEDS ORDERED: ONDANSETRON 4 MG/2 ML VIAL IV PRN (12:40)
[2022-11-16] MEDS ORDERED: SODIUM CHLORIDE 0.9% 10ML INJ IV PRN (12:41)
[2022-11-16] MEDS ORDERED: HYDRALAZINE HCL 20 MG/ML VIAL IV PRN (12:43)
--- NOTE | 2022-11-16 12:47 | P.HP ---
Certification for Inpatient Patient admitted to: Observation With expected LOS: <2 Midnights Patient will require the following post-hospital care: None Practitioner: I am a practitioner with admitting privileges, knowledge of patient current condition, hospital course, and medical plan of care. Services: Services provided to patient in accordance with Admission requirements found in Title 42 Section 412.3 of the Code of Federal Regulations Patient History Date of Service: 11/16/22 Reason for admission: SOB History of Present Illness: Patient is a 67-year-old male with a past medical history significant for depression, COPD who presents with complaint of shortness of breath that has been ongoing for the past 1 and half weeks. Patient reported that he was compliant with his home medications. Shortness of breath increased over time. Patient reported associated signs and symptoms of cough, chest tightness and headache. Patient denies any other signs or symptoms. Symptoms are aggravated or relieved by nothing. 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 Patient decided to present to the hospital as directed. Of note, patient is home O2 therapy every bedtime and as needed. Allergies No Known Allergies Allergy (Verified 05/28/21 13:17) Home Medications: Albuterol Sulfate [Proair Hfa] 8.5 gm IH DAILY PRN 06/22/15 Ipratropium/Albuterol Sulfate [Iprat-Albut 0.5-3(2.5) mg/3 ml] 3 ml IH Q4HP PRN 06/22/15 predniSONE [Deltasone*] 10 mg PO DAILY 05/28/21 Omeprazole [Prilosec] 40 mg PO DAILY 11/29/21 Trazodone [Desyrel*] 150 mg PO BEDTIME PRN 11/29/21 traMADol HCL [Ultram*] 1 tab PO BID PRN 11/29/21 Benzonatate [Tessalon Perle] 200 mg PO Q8H PRN 5 Days #15 cap 12/01/21 levoFLOXacin [Levaquin*] 750 mg PO DAILY 6 Days #6 tab 12/01/21 predniSONE [Prednisone] 20 mg PO SEECOM 8 Days #12 tablet 12/01/21 - Past Medical/Surgical History Diabetic: No -: COPD -: lumbar herniations -: abd hernia Past Surgical History: Reviewed- Non-Contributory - Family History Mother -: Lung disease Notes: emphysema Father -: Lung disease Notes: emphysema, TB Sister -: Cancer Notes: breast CA - Social History Smoking Status: Former smoker Alcohol use: No CD- Drugs: No Caffeine use: Yes Place of Residence: Home Review of Systems General: Unremarkable Eyes: Unremarkable ENT: Unremarkable Respiratory: Cough, Shortness of Breath, Other (Chest tightness.) Cardiovascular: Unremarkable Gastrointestinal: Unremarkable Genitourinary: Unremarkable Musculoskeletal: Unremarkable Integumentary: Unremarkable Neurological: Other (Headache) Lymphatics: Unremarkable Physical Examination - Physical Exam General: Alert, Oriented x3, Cooperative, Mild distress HEENT: Atraumatic, PERRLA, Mucous membr. moist/pink, EOMI, Sclerae nonicteric Neck: Supple, 2+ carotid pulse no bruit, No LAD, Without JVD or thyroid abnormality Respiratory: Diminished, Expiratory wheezes Cardiovascular: No edema, Regular rate/rhythm, Normal S1 S2 Capillary refill: <2 Seconds Gastrointestinal: Normal bowel sounds, Soft and benign, Non-distended, No tenderness Musculoskeletal: No clubbing, No tenderness Integumentary: No rashes, No significant lesion Neurological: Normal speech, Normal tone, Normal affect Lymphatics: No axilla or inguinal lymphadenopathy - Studies Laboratory Data (last 24 hrs) 11/16/22 10:20: WBC 10.70, Hgb 11.5 L, Hct 35.7 L, Plt Count 263 11/16/22 10:20: Sodium 135 L, Potassium 4.6, BUN 20 H, Creatinine 0.75, Glucose 156 H Assessment and Plan - Plan --Acute on chronic COPD exacerbation. Patient placed on steroids, neb treatment with albuterol\Atrovent. Continue O2 therapy. Pulmonology consulted. Will await further recommendations. --Depression. Continue home medication. --GERD. Patient placed on Protonix. --Anemia of chronic disease. H&H stable. We will continue to monitor hemoglobin and transfuse if less than 7.0. --CKD 2. Stable. We will continue to monitor renal functions. --Class I obesity. Likely secondary to excess calories intake. Patient counseled on weight reduction, diet and exercise therapy. --DVT prophylaxis with Lovenox subQ. Discharge Plan: Home Plan to discharge in: 48 Hours - Advance Directives Does patient have a Living Will: No Does patient have a Durable POA for Healthcare: No - Code Status/Comfort Care Code Status Assessed: Yes Physician Review: Patient Assessed, Agree with Above Assessment and Plan Critical Care: No
[2022-11-16] MEDS: PANTOPRAZOLE 40 MG INJ IVP SCH (14:38)
[2022-11-16] MEDS: ASPIRIN 81 MG CHEWABLE TABLET PO SCH (14:38)
[2022-11-16 14:43] VITALS: BMI 33.5
[2022-11-16 14:46] LABS: Arterial Blood Carboxyhemoglob 1.6 % (0-1.5); Blood Gas Oxyhemoglobin 92.8 % (94-97); Blood O2 Saturation 95.8 % (92-98.5)
[2022-11-16] MEDS: ALBUTEROL 2.5 MG/3 ML NEB SOL NEB SCH ×2 (15:16→19:45)
[2022-11-16] MEDS: IPRATROPIUM BROM 0.5MG/2.5ML NEB SCH ×2 (15:16→19:45)
[2022-11-16] MEDS: METHYLPREDNISOLONE 40 MG INJ IV SCH (16:18)
[2022-11-16 19:27] LABS: Magnesium 2.3 mg/dL (1.6-2.4); Phosphorus 3.1 mg/dL (2.5-4.9)
[2022-11-16 19:59] LABS: Specific Gravity 1.024 (1.005-1.030); Urine Bacteria None Seen /HPF (<20); Urine Bilirubin NEGATIVE (Negative); Urine Blood Negative (Negative); Urine Clarity Clear (Clear); Urine Color Light-Yellow (Yellow); Urine Glucose 4+ (Over) (Negative); Urine Protein 1+ (Negative); Urine RBC <5 /HPF (None Seen); Urine Urobilinogen Normal (Normal)
[2022-11-16] MEDS: GUAIFENESIN/CODEINE 5ML UCUP PO PRN (21:23)
[2022-11-16] MEDS: ACETAMINOPHEN 325 MG TABLET PO PRN (21:30)
[2022-11-16] MEDS: TRAZODONE 50 MG TABLET PO PRN (22:37)
[2022-11-17] MEDS: METHYLPREDNISOLONE 40 MG INJ IV SCH ×3 (00:21→16:26)
[2022-11-17] MEDS: ALBUTEROL 2.5 MG/3 ML NEB SOL NEB SCH ×4 (01:18→19:55)
[2022-11-17] MEDS: IPRATROPIUM BROM 0.5MG/2.5ML NEB SCH ×4 (01:18→19:55)
[2022-11-17 04:06] LABS: Absolute Lymphocytes (CBC) 0.4 K/uL (0.7-4.9); Hematocrit 34.3 % (39.6-49.0); Lymphocytes % 3.3 % (15.3-44.8); MCV 88.3 fL (80-100); MPV 8.7 fL (7.6-11.3); RBC Red Blood Cell Count 3.88 M/uL (4.33-5.43)
[2022-11-17 04:15] LABS: Potassium 4.3 mmol/L (3.5-5.1)
[2022-11-17] MEDS: ASPIRIN 81 MG CHEWABLE TABLET PO SCH (07:51)
[2022-11-17] MEDS: PANTOPRAZOLE 40 MG INJ IVP SCH (07:51)
[2022-11-17] MEDS: ENOXAPARIN 40 MG/0.4 ML SQ SCH (07:51)
[2022-11-17] MEDS: ACETAMINOPHEN 325 MG TABLET PO PRN ×2 (11:15→18:23)
--- NOTE | 2022-11-17 12:03 | P.PN ---
Subjective Date of Service: 11/17/22 Chief Complaint: SOB No acute events overnight. He reports that his shortness of breath is unchanged compared to yesterday. He reports that he continues to have wheezing and dry cough. He denies any chest pain or palpitations. Review of Systems 10-point ROS is otherwise unremarkable Respiratory: Cough, Shortness of Breath, Wheezing Physical Examination - Vital Signs Temperature: 98.2 F Blood Pressure: 153/67 Pulse: 86 Respirations: 18 Pulse Ox (%): 96 - Physical Exam General: Alert, In no apparent distress, Oriented x3 HEENT: Atraumatic, Mucous membr. moist/pink, Sclerae nonicteric Neck: JVD not distended Respiratory: Diminished, Expiratory wheezes, Inspiratory wheezes Cardiovascular: No edema Gastrointestinal: Normal bowel sounds, Soft and benign, Non-distended, No tenderness, No rebound, No guarding Musculoskeletal: No clubbing Integumentary: No rashes Neurological: Normal speech, Normal affect - Studies Laboratory Data (last 24 hrs) 11/16/22 10:20: WBC 10.70, Hgb 11.5 L, Hct 35.7 L, Plt Count 263 Assessment And Plan - Plan # Acute Chronic Obstructive Pulmonary Disease Exacerbation # Chronic Respiratory Failure secondary to COPD on Home Oxygen (2-3 L) # SIRS Criteria (Tachypnea, Tachycardia) likely due to COPD Exacerbation - no source of infection - Evaluation thus far: - Physical exam = wheezing throughout - ABG: pH 7.36, PCO2 54.1, PO2 101.0 - Chest x-ray = "no acute cardiopulmonary process." - Plan: - Pulmonary Medicine consulted - recommendations appreciated - Bronchodilators and steroids per Pulm - Consulted Respiratory Therapy - Supplemental oxygen to maintain SpO2 > 92% - Assess inhaler technique one improved from COPD exacerbation - Encourage incentive spirometry # Steroid-Induced Hyperglycemia - No reported history of diabetes mellitus - Ordered Hgb A1c - Correction scale insulin # Gastroeophageal Reflux Disease - Continue home omeprazole Farhad Doll M.D.
--- NOTE | 2022-11-17 12:37 | EKG ---
Test Date: 2022-11-16 Test Time: 10:19:52 [employer]: HB MEASUREMENT RESULTS: Intervals: Rate: 75 OR: 162 QRSD: 82 QT: 362 QTc: 404 [place]: P: 91 OR: 162 QRS: 71 T: 72 INTERPRETIVE STATEMENTS: Normal sinus rhythm Normal ECG Compared to ECG 11/29/2021 09:44:20 Ventricular premature complex(es) no longer present ST (T wave) deviation no longer present Electronically Signed On 11-17-22 12:35:16 CDT by Carlyle Bey
--- NOTE | 2022-11-17 13:16 | P.PN ---
Subjective Date of Service: 11/17/22 Chief Complaint: COPD exacerbation Patient is only slightly better he was admitted from my office yesterday with COPD exacerbation did not improve despite outpatient steroids and antibiotic still short of breath and wheezing Review of Systems General: Weakness Respiratory: Cough, Shortness of Breath Physical Examination - Vital Signs Temperature: 98.2 F Blood Pressure: 153/67 Pulse: 86 Respirations: 18 Pulse Ox (%): 96 - Physical Exam General: Alert, Oriented x3, Mild distress Respiratory: Expiratory wheezes Cardiovascular: No edema, Regular rate/rhythm - Studies Laboratory Data (last 24 hrs) 11/17/22 03:40: Sodium 139, Potassium 4.3, BUN 21 H, Creatinine 0.90, Glucose 211 H 11/17/22 03:40: WBC 11.10 H, Hgb 11.1 L, Hct 34.3 L, Plt Count 261 11/16/22 18:36: Phosphorus 3.1, Magnesium 2.3 Assessment And Plan - Current Problems (Diagnosis) (1) COPD exacerbation Onset Date: 06/23/15 Current Visit: No Status: Acute Plan: Patient is 67 years of age admitted with COPD exacerbation failed outpatient therapy agree with IV steroids have added Daliresp and levofloxacin high-dose may have underlying diastolic dysfunction trial of some Lasix echocardiogram Physician Review: Patient Assessed, Agree with Above Assessment and Plan
[2022-11-17] MEDS: ROFLUMILAST 500 MCG TABLET PO SCH (13:35)
[2022-11-17] MEDS: SPIRONOLACTONE 25 MG TABLET PO SCH (13:35)
[2022-11-17] MEDS: levoFLOXacin 750 MG TAB PO SCH (13:36)
[2022-11-17] MEDS: FUROSEMIDE 20 MG/ 2ML VIAL IV SCH (13:36)
[2022-11-17] MEDS: TRAZODONE 50 MG TABLET PO PRN (20:51)
[2022-11-18] MEDS: GUAIFENESIN/CODEINE 5ML UCUP PO PRN (00:53)
[2022-11-18] MEDS: METHYLPREDNISOLONE 40 MG INJ IV SCH ×2 (00:54→09:35)
[2022-11-18] MEDS: IPRATROPIUM BROM 0.5MG/2.5ML NEB SCH ×2 (01:45→08:55)
[2022-11-18] MEDS: ALBUTEROL 2.5 MG/3 ML NEB SOL NEB SCH ×2 (01:45→08:55)
[2022-11-18 04:29] LABS: Potassium 4.6 mEq/L (3.5-5.1)
[2022-11-18] MEDS ORDERED: PANTOPRAZOLE 40MG TABLET PO SCH (09:00)
[2022-11-18] MEDS ORDERED: HOME MED 1 EA UNK (Omeprazole [Prilosec] 40 MG Capsule.Dr) PO SCH (09:00)
[2022-11-18] MEDS: ENOXAPARIN 40 MG/0.4 ML SQ SCH (09:34)
[2022-11-18] MEDS: SPIRONOLACTONE 25 MG TABLET PO SCH (09:35)
[2022-11-18] MEDS: ROFLUMILAST 500 MCG TABLET PO SCH (09:35)
[2022-11-18] MEDS: levoFLOXacin 750 MG TAB PO SCH (09:35)
[2022-11-18] MEDS: ASPIRIN 81 MG CHEWABLE TABLET PO SCH (09:35)
[2022-11-18] MEDS: FUROSEMIDE 20 MG/ 2ML VIAL IV SCH (09:35)
--- NOTE | 2022-11-18 09:54 | P.PN ---
Subjective Date of Service: 11/18/22 Chief Complaint: COPD exacerbation Patient is improving feeling better Better last night little short of breath and congested Review of Systems General: Weakness Respiratory: Cough, Shortness of Breath Physical Examination - Vital Signs Temperature: 97.1 F Blood Pressure: 122/65 Pulse: 70 Respirations: 18 Pulse Ox (%): 97 - Physical Exam General: Alert, Oriented x3 Respiratory: Expiratory wheezes Cardiovascular: No edema, Regular rate/rhythm, Normal S1 S2 Gastrointestinal: Normal bowel sounds, Soft and benign Assessment And Plan - Current Problems (Diagnosis) (1) COPD exacerbation Onset Date: 06/23/15 Current Visit: No Status: Acute Plan: Admitted with COPD exacerbation doing well oxygenation satisfactory blood pressures much better controlled add spironolactone and Daliresp at discharge may have underlying diastolic dysfunction Discharge Plan: Home Physician Review: Patient Assessed, Agree with Above Assessment and Plan
[2022-11-18 09:57] VITALS: O2SAT 98
--- NOTE | 2022-11-18 11:46 | EKG ---
Test Date: 2022-11-16 Test Time: 10:19:19 Walking Dragline [employer]: HB MEASUREMENT RESULTS: Intervals: Rate: 81 [place]: 162 QRSD: 76 QT: 354 QTc: 411 [place]: P: [place]: 162 QRS: 73 T: 74 INTERPRETIVE STATEMENTS: Normal sinus rhythm Normal ECG Compared to ECG 11/29/2021 09:44:20 Ventricular premature complex(es) no longer present ST (T wave) deviation no longer present Electronically Signed On 11-18-22 11:44:42 CDT by Carlyle Bey
--- NOTE | 2022-11-18 12:41 | ECHO ---
HEIGHT: 5 ft 11 in WEIGHT: 239 lb 15.923 oz DATE OF STUDY: 11/18/[address]: Tal Stauffer MD 2-DIMENSIONAL: YES M.MODE: YES DOPPLER: YES COLOR FLOW: YES TDS: NO PORTABLE: YES DEFINITY: NO BUBBLE STUDY: NO DIAGNOSIS: QUESTIONABLE CHF CARDIAC HISTORY: CATHERIZATION: NO SURGERY: NO PROSTHETIC VALVE: NO PACEMAKER: NO MEASUREMENTS (cm) DIASTOLIC (NORMALS) SYSTOLIC (NORMALS) IVSd 1.1 (0.6-1.2) LA Diam 3.1 (1.9-4.0) LVEF 55-60% LVIDd 4.0 (3.5-5.7) LVIDs 3.0 (2.0-3.5) %FS 26% LVPWd 1.2 (0.6-1.2) Ao Diam 2.8 (2.0-3.7) 2 DIMENSIONAL ASSESSMENT: RIGHT ATRIUM: NORMAL LEFT ATRIUM: NORMAL RIGHT VENTRICLE: NORMAL LEFT VENTRICLE: NORMAL TRICUSPID VALVE: MILD TR MITRAL VALVE: MILD MR PULMONIC VALVE: NORMAL AORTIC VALVE: NORMAL PERICARDIAL EFFUSION: NONE AORTIC ROOT: NORMAL LEFT VENTRICULAR WALL MOTION: NORMAL DOPPLER/COLOR FLOW: MILD MITRAL AND TRICUSPID REGURGITATION. COMMENTS: 1. NORMAL LEFT VENTRICULAR EJECTION FRACTION 55-60 %. 2. NORMAL WALL MOTION. 3. GRADE II DIASTOLIC DYSFUNCTION. 4. MODERATE PULMONARY HYPERTENSION WITH RIGHT VENTRICULAR SYSTOLIC PRESSURE OF 55-60 mmHg. 5. MILD MITRAL REGURGITATION. 6. MILD TRICUSPID REGURGITATION. TECHNOLOGIST: Jd LANGFORD
[2022-11-18 12:45] VITALS: BP 119/62; TEMP 97.6
--- NOTE | 2022-11-18 14:34 | P.DS ---
Admission Date: 11/16/22 Discharge Date: 11/18/22 Disposition: ROUTINE DISCHARGE Discharge Condition: FAIR Reason for Admission: COPD exacerbation Consultations: 1. Pulmonology Hospital Course: DIAGNOSES: # Acute Chronic Obstructive Pulmonary Disease Exacerbation # Chronic Respiratory Failure secondary to COPD on Home Oxygen (2-3 L) # Moderate Pulmonary Hypertension # Suspect Chronic Diastolic Congestive Heart Failure with Preserved Ejection Fraction # SIRS Criteria (Tachypnea, Tachycardia) likely due to COPD Exacerbation - no source of infection # Steroid-Induced Hyperglycemia in Prediabetes # Gastroeophageal Reflux Disease HOSPITAL COURSE: Mr. Fuentes Yarbrough is a pleasant 67 year old male with a past medical history significant for chronic respiratory failure secondary to COPD on home oxygen and gastroesophageal reflux disease who was admitted to the [facility] on 11/16/2022 for shortness of breath. He was admitted to the Medicine service. Upon further evaluation, he was found to have an acute chronic obstructive pulmonary disease exacerbation. His chest x-ray revealed, "no acute cardiopulmonary process." His transthoracic echocardiogram revealed, "1. normal left ventricular ejection fraction 55-60 %. 2. normal wall motion. 3. grade II diastolic dysfunction. 4. moderate pulmonary hypertension with right ventricular systolic pressure of 55-60 mmhg. 5. mild mitral regurgitation. 6. mild tricuspid regurgitation." He was treated with steroids and bronchodilators, and over the course of his hospitalization, his symptoms improved significantly. Dr. Stauffer has cleared him for discharge home with spironolactone, roflumilast, prednisone, and levofloxacin. On 11/18/2022, he was seen on rounds and deemed medically stable for discharge. He was discharged with instructions to schedule follow-up appointments with her PCP, with Cardiology (Dr. Bey), and with his Paper Baling Machine Operator (Dr. Stauffer). He was provided prescriptions for spironolactone, roflumilast, prednisone, and levofloxacin. He was given the opportunity to ask questions and reported no further questions. Furthermore, all questions were answered to the best of my ability. A copy of this discharge summary will be sent to the above providers to facilitate continuity of care. Today, I personally spent 25 minutes on his case, of which greater than 50% of the time was spent in patient education, counseling, and coordination of care as described above. - Physical Exam General: Alert, In no apparent distress, Oriented x3 HEENT: Atraumatic, Mucous membr. moist/pink, Sclerae nonicteric Neck: JVD not distended Respiratory: Diminished, but clear to auscultation bilaterally without wheezes, rhonchi, or rales Cardiovascular: Regular rate and rhythm, no murmurs, gallops, or rubs, no edema Gastrointestinal: Normal bowel sounds, Soft and benign, Non-distended, No tenderness, No rebound, No guarding Musculoskeletal: No clubbing Integumentary: No rashes Neurological: Normal speech, Normal affect Vital Signs/Physical Exam: Temp Pulse Resp BP Pulse Ox 97.6 F 70 18 119/62 96 11/18/22 12:00 11/18/22 12:00 11/18/22 12:00 11/18/22 12:00 11/18/22 12:00 Laboratory Data at Discharge: WBC 11.10 K/uL (4.3-10.9) H 11/17/22 03:40 Hgb 11.1 g/dL (13.6-17.9) L 11/17/22 03:40 Hct 34.3 % (39.6-49.0) L 11/17/22 03:40 Plt Count 261 thou/uL (152-406) 11/17/22 03:40 Sodium 140 mEq/L (136-145) 11/18/22 03:15 Potassium 4.6 mEq/L (3.5-5.1) 11/18/22 03:15 BUN 28 mg/dL (7-18) H 11/18/22 03:15 Creatinine 0.87 mg/dL (0.70-1.30) 11/18/22 03:15 Glucose 165 mg/dL (74-106) H 11/18/22 03:15 Phosphorus 3.1 mg/dL (2.5-4.9) 11/16/22 18:36 Magnesium 2.3 mg/dL (1.6-2.4) 11/16/22 18:36 Home Medications: Albuterol Sulfate [Proair Hfa] 90 mcg IH DAILY PRN 06/22/15 Ipratropium/Albuterol Sulfate [Iprat-Albut 0.5-3(2.5) mg/3 ml] 3 ml IH Q4HP PRN 06/22/15 Omeprazole [Prilosec] 40 mg PO DAILY 11/29/21 Trazodone [Desyrel*] 150 mg PO BEDTIME PRN 11/29/21 traMADol HCL [Ultram*] 1 tab PO BID PRN 11/29/21 Fluticasone/Umeclidin/Vilanter [Trelegy Ellipta 100-62.5-25] 1 puff IH DAILY 11/16/22 Levalbuterol [Xopenex*] 1 puff IH Q6H PRN 11/17/22 Aspirin Chewable [Aspirin Chewable*] 81 mg PO DAILY tab.chew 11/18/22 Roflumilast [Daliresp*] 500 mcg PO DAILY 30 Days #30 tab 11/18/22 Spironolactone [Aldactone*] 25 mg PO DAILY 30 Days #30 tab 11/18/22 levoFLOXacin [Levaquin*] 750 mg PO DAILY 5 Days #5 tab 11/18/22 predniSONE [Prednisone*] 20 mg PO BID 5 Days #10 tab 11/18/22 New Medications: Spironolactone [Aldactone*] 25 mg PO DAILY 30 Days #30 tab Roflumilast [Daliresp*] 500 mcg PO DAILY 30 Days #30 tab levoFLOXacin [Levaquin*] 750 mg PO DAILY 5 Days #5 tab predniSONE [Prednisone*] 20 mg PO BID 5 Days #10 tab Physician Discharge Instructions: 1. Please call and schedule a follow-up appointment with your PCP in 3-5 days 2. Please call and schedule a follow-up appointment with your Paper Baling Machine Operator (Dr. Stauffer) in 5-7 days 3. Please call and schedule a follow-up appointment with Cardiology (Dr. Bey) in 5-7 days Diet: AHA Activity: Ad raimundo Followup: Tal Stauffer MD [ACTIVE - CAN ADMIT] - 1 Week (industrial photographer- call to schedule an appointment) Carlyle Bey MD [ACTIVE - CAN ADMIT] - Time spent managing pt's care (in minutes): 25
[2022-11-18] MEDS ORDERED: predniSONE 20 MG TAB PO SCH (21:00)
== END 2022-11-18 15:35 | disposition home or self-care (01) | DRG 191 ==
LOC: ER 09:58 → ERHOLD 12:34 → 2ND 13:36 → OBSVTOIN 11-17 12:38
PROVIDERS: ADMIT Internal Medicine; ATTEND Internal Medicine
DX: J44.1 Chronic obstructive pulmonary disease with (acute) exacerbation (principal); I50.32 Chronic diastolic (congestive) heart failure; J96.10 Chronic respiratory failure, unspecified whether with hypoxia or hypercapnia; R65.10 Systemic inflammatory response syndrome (SIRS) of non-infectious origin without acute organ dysfunction; F32.A Depression, unspecified; N18.2 Chronic kidney disease, stage 2 (mild); D63.1 Anemia in chronic kidney disease; K21.9 Gastro-esophageal reflux disease without esophagitis; E66.09 Other obesity due to excess calories; I27.20 Pulmonary hypertension, unspecified; T38.0X5A Adverse effect of glucocorticoids and synthetic analogues, initial encounter; R73.9 Hyperglycemia, unspecified; R73.03 Prediabetes; Z68.33 Body mass index [BMI] 33.0-33.9, adult; Z79.52 Long term (current) use of systemic steroids; Z99.81 Dependence on supplemental oxygen; Z87.891 Personal history of nicotine dependence; Z79.899 Other long term (current) drug therapy; Z20.822 Contact with and (suspected) exposure to COVID-19
CPT/HCPCS: 0240U; 36415; 71045; 80048; 81001; 82805; 83036; 83735; 83880; 84100; 84484; 85025; 85379; 93005; 93306; 94640; 96365; 96375; 99285; C9113; G0378; J1650; J1940; J2920; J2930; J3475; J7613; J7614; J7644

== ENCOUNTER 2023-06-11 11:31 | Emergency (ER) | payer MEDICARE ==
--- NOTE | 2023-06-11 12:02 | RAD REPORT ---
EXAM DESCRIPTION: RAD - Chest Single View - 06/11/2023 11:56 am CLINICAL HISTORY: DYSPNEA COMPARISON: <Comparisons> FINDINGS: Lines: None. Lungs: No evidence of edema or pneumonia. Pleural: No significant pleural effusions or pneumothorax. Cardiac: The heart size is within normal limits. Mediastinum: Within normal limits. Bones: No acute fractures. Other: None IMPRESSION: No acute cardiopulmonary disease.
[2023-06-11] MEDS ORDERED: ALBUTEROL 2.5 MG/3 ML NEB SOL ONE ×2 (12:04→13:35)
[2023-06-11] MEDS ORDERED: METHYLPREDNISOLONE 125 MG INJ ONE (12:04)
[2023-06-11] MEDS ORDERED: IPRATROPIUM BROM 0.5MG/2.5ML ONE (12:04)
[2023-06-11] MEDS ORDERED: MAGNESIUM SULFATE 1 gm IVPB 1 GM/100 ML BAG IV ONE (12:05)
[2023-06-11 12:21] LABS: Absolute Lymphocytes (CBC) 0.9 K/uL (0.7-4.9); Hematocrit 34.7 % (39.6-49.0); Lymphocytes % 7.6 % (15.3-44.8); MCV 85.4 fL (80-100); MPV 8.4 fL (7.6-11.3); Platelets 250 thou/uL (152-406); RBC Red Blood Cell Count 4.06 M/uL (4.33-5.43)
[2023-06-11 13:12] LABS: Anisocytosis SLIGHT; Blood Morphology Comment NOTED (NOT SEEN); Platelet Estimate ADEQ; White Blood Cell Scan OK (OK)
--- NOTE | 2023-06-11 13:44 | EDPHYS ---
Physician Documentation [facility] Name: Fuentes Yarbrough Jr Age: 68 yrs Sex: Male : 1955 Arrival Date: 06/11/2023 Time: 11:31 Bed 5 Private MD: ED Physician Bin Noble HPI: 06/11 16:24 This 68 yrs old Male presents to ER via Wheelchair with complaints of Breathing kb Difficulty. 16:24 The patient has shortness of breath and the patient has a history of COPD. Onset: The kb symptoms/episode began/occurred 3 week(s) ago. Duration: The symptoms are continuous. The patient's shortness of breath is aggravated by exertion, is alleviated by nothing. Associated signs and symptoms: Pertinent positives: non-productive cough, Pertinent negatives: chest pain, fever. Severity of symptoms: At their worst the symptoms were moderate in the emergency department the symptoms are unchanged. The patient has not experienced similar symptoms in the past. The patient has not recently seen a physician. Pt reports cough, congestion and shortness of breath for 3 weeks. Has been seen by Dr stauffer and given antibiotics, but they haven't helped. . Historical: - Allergies: 11:37 No Known Allergies; ll1 - PMHx: 11:37 COPD; ll1 - Immunization history:: Adult Immunizations up to date. - Social history:: Smoking status: Patient/guardian denies using tobacco. ROS: 16:21 Constitutional: Negative for fever, chills, and weight loss, kb 16:21 Respiratory: Positive for cough, shortness of breath, 16:21 All other systems are negative, Exam: 16:21 Constitutional: This is a well developed, well nourished patient who is awake, alert, kb and in no acute distress. Head/Face: Normocephalic, atraumatic. ENT: Moist Mucous membranes Cardiovascular: Regular rate Abdomen/GI: Soft, non-tender. No distention Skin: Warm, dry with normal turgor. Normal color. MS/ Extremity: Pulses equal, no cyanosis. Neurovascular intact. Full, normal range of motion. Neuro: Awake and alert, GCS 15, oriented to person, place, time, and situation. Moves all extremities. Normal gait. 16:21 Respiratory: the patient does not display signs of respiratory distress, Respirations: normal, Breath sounds: wheezing: expiratory that is mild, is scattered, Vital Signs: 11:38 BP 122 / 80; Pulse 107; Resp 28; Temp 97.9; Pulse Ox 95% on 3 lpm NC; Weight 106.59 kg; ll1 Height 5 ft. 10 in. ; Pain 5/10; 12:25 BP 121 / 71; Pulse 89; Resp 20; Pulse Ox 100% on Breathing tx; nj1 13:39 BP 128 / 53; Pulse 80; Resp 22; Pulse Ox 96% on R/A; hb 11:38 Body Mass Index 33.72 (106.59 kg, 177.8 cm) ll1 11:38 Pain Scale: Adult ll1 MDM: 11:38 Patient medically screened. kb 16:22 Differential diagnosis: CHF exacerbation, Chronic Obstructive Pulmonary Disease kb pneumonia. Antibiotic administration: Not indicated. Data reviewed: vital signs, nurses notes. Consideration of Admission/Observation Escalation of care including admission/observation considered. admission considered for COPD exacerbation. Resp even and unlabored, wheezing decreased, oxygen 98-100% on 2.5L. Pt is normally on 3L at all times at home. Pt was recently seen by Dr Stauffer and put on antibiotics and steroids, has nebs at home to use. Pt has follow up appt with Dr Stauffer at 10AM tomorrow. . I considered the following discharge prescriptions or medication management in the emergency department Antibiotics: At this time antibiotics are not recommended. Counseling: I had a detailed discussion with the patient and/or guardian regarding the historical points, exam findings, and any diagnostic results supporting the discharge/admit diagnosis, lab results, radiology results, the need for outpatient follow up, a family practitioner, to return to the emergency department if symptoms worsen or persist or if there are any questions or concerns that arise at home. 16:25 Test considered but Not performed: EKG: EKG considered, but pt states "I don't need kb that because this has nothing to do with my heart.". 06/11 11:39 Order name: CBC with Diff; Complete Time: 13:13 kb 06/11 11:39 Order name: Basic Metabolic Panel; Complete Time: 12:34 kb 06/11 13:12 Order name: CBC Smear Scan; Complete Time: 13:13 EDMS 06/11 11:39 Order name: Chest Single View XRAY; Complete Time: 12:05 kb 06/11 11:39 Order name: IV Start; Complete Time: 12:15 kb Administered Medications: 11:58 Drug: MethylPrednisoLONE IVP 125 mg IVP once Route: IVP; Site: left forearm; nj1 12:00 Drug: Albuterol Inhalation 2.5 mg Inhalation once Route: Inhalation; nj1 12:00 Drug: Ipratropium Inhalation Aerosol 0.5 mg Inhalation once Route: Inhalation; nj1 12:02 Drug: Magnesium Sulfate IVPB 1 grams IVPB once over 1 hrs Route: IVPB; Infused Over: 1 nj1 hrs; Site: left forearm; 13:23 Drug: Albuterol Inhalation 2.5 mg Inhalation once Route: Inhalation; 9 Disposition: 18:07 Co-signature as Attending Physician, Bin Noble MD I reviewed the patient's care rn provided by the Advanced Practice Provider and agree with the diagnosis and treatment plan. Disposition Summary: 06/11/23 13:43 Discharge Ordered Notes: Location: Home kb Condition: Stable kb Diagnosis - COPD/ Chronic obstructive pulmonary disease with (acute) exacerbation kb Followup: kb - With: Emergency Department - When: As needed - Reason: Worsening of condition Followup: kb - With: Private Physician - When: 2 - 3 days - Reason: Recheck today's complaints, Continuance of care, Re-evaluation by your physician Discharge Instructions: - Discharge Summary Sheet kb - Chronic Obstructive Pulmonary Disease Exacerbation kb Forms: - Medication Reconciliation Form kb - Thank You Letter kb - Antibiotic Education kb - Prescription Opioid Use kb - Patient Portal Instructions kb - Leadership Thank You Letter kb Signatures: Dispatcher [employer] Modesta Caal, ASSISTANT ACCOUNTING MANAGER-C ASSISTANT ACCOUNTING MANAGER-Bin Myers MD MD rn Lewis, Lynsay RN RN ll1 Jodie River, RN RN mb9 Jessika Chavez RN RN nj1
--- NOTE | 2023-06-11 13:44 | ER ---
Nurse's Notes [facility] Name: Fuentes Yarbrough Jr Age: 68 yrs Sex: Male : 1955 Arrival Date: 06/11/2023 Time: 11:31 Bed 5 Private MD: Diagnosis: COPD/ Chronic obstructive pulmonary disease with (acute) exacerbation Presentation: 06/11 11:38 Chief complaint: Patient states: SOB, cough, worsening SOB for 3 weeks. 90 % RA. ll1 Coronavirus screen: Vaccine status: Patient reports receiving the 2nd dose of the covid vaccine. Client denies travel out of the [place] in the last 14 days. congestion, cough unrelated to allergies, difficulty breathing, shortness of breath, Client presents with at least one sign or symptom that may indicate coronavirus-19. Standard/surgical mask placed on the client. Ebola Screen: Patient denies travel to an Ebola-affected area in the 21 days before illness onset. Initial Sepsis Screen: Does the patient meet any 2 criteria? No. Patient's initial sepsis screen is negative. Does the patient have a suspected source of infection? Yes: Productive cough/pneumonia. Risk Assessment: Do you want to hurt yourself or someone else? Patient reports no desire to harm self or others. Onset of symptoms was May 19, 2023. 11:38 Method Of Arrival: Wheelchair ll1 11:38 Acuity: DANAY 3 ll1 Historical: - Allergies: 11:37 No Known Allergies; ll1 - PMHx: 11:37 COPD; ll1 - Immunization history:: Adult Immunizations up to date. - Social history:: Smoking status: Patient/guardian denies using tobacco. Screenin:34 [facility] ED Fall Risk Assessment (Adult) Score/Fall Risk Level 0 - 2 = Low Risk nj1 Oriented to surroundings, Maintained a safe environment, Hourly rounding (assess needs \T\ fall precautionary measures) done. Abuse screen: Denies threats or abuse. Denies injuries from another. Nutritional screening: No deficits noted. Tuberculosis screening: No symptoms or risk factors identified. Assessment: 12:00 General: Appears in no apparent distress. Behavior is calm, cooperative, appropriate nj1 for age. Pain: Denies pain. Neuro: Level of Consciousness is awake, alert, obeys commands, Oriented to person, place, time, situation. Cardiovascular: Patient's skin is warm and dry. Respiratory: Airway is patent Respiratory effort is even, Slightly labored the patient has mild shortness of breath. 12:31 Reassessment: Patient appears in no apparent distress at this time. Patient and/or nj1 family updated on plan of care and expected duration. Pain level reassessed. Patient is alert, oriented x 3, equal unlabored respirations, skin warm/dry/pink. 13:39 Reassessment: Patient appears in no apparent distress at this time. Patient and/or hb family updated on plan of care and expected duration. Pain level reassessed. Patient is alert, oriented x 3, equal unlabored respirations, skin warm/dry/pink. Vital Signs: 11:38 BP 122 / 80; Pulse 107; Resp 28; Temp 97.9; Pulse Ox 95% on 3 lpm NC; Weight 106.59 kg; ll1 Height 5 ft. 10 in. ; Pain 5/10; 12:25 BP 121 / 71; Pulse 89; Resp 20; Pulse Ox 100% on Breathing tx; nj1 13:39 BP 128 / 53; Pulse 80; Resp 22; Pulse Ox 96% on R/A; hb 11:38 Body Mass Index 33.72 (106.59 kg, 177.8 cm) ll1 11:38 Pain Scale: Adult ll1 ED Course: 11:33 Patient arrived in ED. rg4 11:38 Modesta Herrera FNP-C is [facility]. kb 11:38 Bin Noble MD is Attending Physician. kb 11:39 Triage completed. ll1 11:39 Arm band placed on Patient placed in an exam room, on a stretcher. ll1 11:46 Jessika Chavez, AURELIANO is Primary Nurse. nj1 11:56 Chest Single View XRAY In Process Unspecified. EDMS 11:58 Inserted saline lock: 22 gauge in left forearm, using aseptic technique. Blood nj1 collected. 12:36 Patient has correct armband on for positive identification. Bed in low position. Call nj1 light in reach. Provided Education on: call light, fall precautions. 13:56 No provider procedures requiring assistance completed. IV discontinued, intact, mb9 bleeding controlled, No redness/swelling at site. Pressure dressing applied. Administered Medications: 11:58 Drug: MethylPrednisoLONE IVP 125 mg IVP once Route: IVP; Site: left forearm; nj1 12:00 Drug: Albuterol Inhalation 2.5 mg Inhalation once Route: Inhalation; nj1 12:00 Drug: Ipratropium Inhalation Aerosol 0.5 mg Inhalation once Route: Inhalation; nj1 12:02 Drug: Magnesium Sulfate IVPB 1 grams IVPB once over 1 hrs Route: IVPB; Infused Over: 1 nj1 hrs; Site: left forearm; 13:23 Drug: Albuterol Inhalation 2.5 mg Inhalation once Route: Inhalation; mb9 Outcome: 13:43 Discharge ordered by . jacqui 13:56 Discharged to home ambulatory, mb9 13:56 Condition: stable 13:56 Discharge instructions given to patient, Instructed on discharge instructions, follow up and referral plans. Demonstrated understanding of instructions, follow-up care, 13:56 Patient left the ED. mb9 Signatures: Dispatcher [employer] EDMS Modesta Herrera, PEDIATRIC ALLERGIST-C PEDIATRIC ALLERGIST-Ckb Katherine Valdivia, RN RN Haydee Honeycutt rg4 Ramya Lee RN RN 1 Jodie River RN RN mb9 Jessika Chavez RN RN nj1 Corrections: (The following items were deleted from the chart) 12:33 12:00 Respiratory: Airway is patent Respiratory effort is even, Slightly labored nj1 nj1
[2023-06-11 14:19] VITALS: TEMP 97.9
[2023-06-11 14:21] VITALS: BP 128/53; O2SAT 96
== END 2023-06-11 13:56 | disposition home or self-care (01) ==
LOC: ER 11:31
DX: J44.1 Chronic obstructive pulmonary disease with (acute) exacerbation (principal)
CPT/HCPCS: 85025; 80048; 36415; 71045; 96375; 96374; 99285; J3475; J7613 ×2; J7644; J2930

== ENCOUNTER 2024-07-15 09:45 | Inpatient (IN) | payer MEDICARE ==
[2024-07-15] MEDS ORDERED: METHYLPREDNISOLONE 125 MG INJ ONE (10:20)
[2024-07-15] MEDS ORDERED: IPRATROPIUM BROM 0.5MG/2.5ML ONE (10:20)
[2024-07-15] MEDS ORDERED: LEVALBUTEROL 1.25 MG/3 ML NEB ONE (10:20)
[2024-07-15] MEDS ORDERED: Magnesium Sulfate 2gm IVPB 2 G/50 ML BAG IV ONE (10:21)
[2024-07-15] MEDS ORDERED: NA CHLORIDE 0.9% 500 ML ONE (10:21)
[2024-07-15] MEDS ORDERED: Levofloxacin500mg IV 500 MG/100 ML BAG IV ONE (10:21)
[2024-07-15] MEDS ORDERED: FAMOTIDINE 20 MG/2 ML VIAL IV ONE (10:21)
--- NOTE | 2024-07-15 10:25 | ER ---
Nurse's Notes [facility] Name: Fuentes Yarbrough Jr Age: 69 yrs Sex: Male : 1955 Arrival Date: 07/15/2024 Time: 09:45 Bed 17 Private MD: Diagnosis: Dyspnea;COPD/ Chronic obstructive pulmonary disease with (acute) exacerbation-failed out patient treatment;Obesity, unspecified;Anemia, unspecified Presentation: 07/15 10:00 Chief complaint: Patient states: SOB for 1 week, no fever. Coronavirus screen: Client ll1 denies travel out of the [place] in the last 14 days. cough unrelated to allergies, difficulty breathing, shortness of breath, Client presents with at least one sign or symptom that may indicate coronavirus-19. Standard/surgical mask placed on the client. Ebola Screen: Patient denies travel to an Ebola-affected area in the 21 days before illness onset. Initial Sepsis Screen: Does the patient meet any 2 criteria? No. Patient's initial sepsis screen is negative. Does the patient have a suspected source of infection? No. Patient's initial sepsis screen is negative. Risk Assessment: Do you want to hurt yourself or someone else? Patient reports no desire to harm self or others. Onset of symptoms was July 08, 2024. 10:00 Method Of Arrival: Ambulatory ll1 10:00 Acuity: DANAY 3 ll1 Triage Assessment: 09:50 General: Appears distressed, uncomfortable, Behavior is calm, cooperative, appropriate ll1 for age. Pain: Denies pain. Respiratory: Reports shortness of breath cough that is labored breathing Onset: The symptoms/episode began/occurred 1 week, the patient has moderate shortness of breath. Historical: - Allergies: 10:00 No Known Allergies; ll1 - PMHx: 10:00 COPD; ll1 - PSHx: 10:00 None; ll1 - Immunization history:: Adult Immunizations up to date. - Infectious Disease History:: Denies. - Social history:: Smoking status: Patient/guardian denies using tobacco, the patient reports quitting approximately 2 years ago. - Family history:: not pertinent. Screenin:00 [facility] ED Fall Risk Assessment (Adult) History of falling in the last 3 months, bp including since admission No falls in past 3 months (0 pts) Confusion or Disorientation No (0 pts) Intoxicated or Sedated No (0 pts) Impaired Gait No (0 pts) Mobility Assist Device Used No (0 pt) Altered Elimination No (0 pt) Score/Fall Risk Level 0 - 2 = Low Risk Oriented to surroundings. Abuse screen: Denies threats or abuse. Denies injuries from another. Nutritional screening: No deficits noted. Tuberculosis screening: No symptoms or risk factors identified. Assessment: 10:00 General: Appears in no apparent distress. comfortable, obese, Behavior is calm, bp cooperative, appropriate for age. Pain: Denies pain. Cardiovascular: Rhythm is sinus rhythm. Respiratory: Airway is patent Respiratory effort is even, unlabored, Breath sounds with wheezes bilaterally. 11:00 Reassessment: Patient appears in no apparent distress at this time. Patient is alert, bp oriented x 3, equal unlabored respirations, skin warm/dry/pink. 12:24 Reassessment: No changes from previously documented assessment. Patient is alert, bp oriented x 3, equal unlabored respirations, skin warm/dry/pink. 12:48 Reassessment: REPORT FAXED FOR RM 407. bp 12:50 Reassessment: ADMIT ON HOLD 2/2 FLOOR STAFFING. bp 14:02 Reassessment: PER HS, PT CLEARED FOR ADMIT. bp Vital Signs: 10:00 BP 142 / 59; Pulse 82; Resp 22; Temp 97.3; Pulse Ox 97% on R/A; Weight 104.33 kg; ll1 Height 5 ft. 10 in. ; Pain 0/10; 11:11 BP 121 / 69; Pulse 81; Resp 19; Pulse Ox 98% on 3 lpm NC; bp 12:24 BP 125 / 50; Pulse 89; Resp 16; Pulse Ox 99% ; bp 12:47 BP 125 / 56; Pulse 80; Resp 19; Temp 98.1; Pulse Ox 97% on 3 lpm NC; bp 14:02 BP 124 / 91; Pulse 82; Resp 19; Pulse Ox 97% on 3 lpm NC; bp 10:00 Body Mass Index 33.00 (104.33 kg, 177.8 cm) ll1 10:00 Pain Scale: Adult ll1 ED Course: 09:46 Patient arrived in ED. im 09:47 Luís Shepherd MD is Attending Physician. pilar 09:48 Arm band placed on Patient placed in an exam room, on a stretcher. ll1 09:49 Hilario Crandall, RN is Primary Nurse. bp 10:00 Patient has correct armband on for positive identification. bp 10:02 Triage completed. ll1 10:18 XRAY Chest (1 view) In Process Unspecified. EDMS 10:23 Chapin Noble MD is Hospitalizing Provider. pilar 10:45 Initial lab(s) drawn, by me, sent to lab. First set of blood cultures drawn by me, bp Second set of blood cultures drawn by me, EKG done, by ED staff, reviewed by Luís Shepherd MD T\T\S collected, blood band applied to patient. Inserted saline lock: 20 gauge in right wrist, using aseptic technique. Blood collected. 11:25 Hospitalizing Provider role handed off by Cahpin Noble MD [facility] 11:25 Curt Perla MD is Hospitalizing Provider. pilar 12:48 Provided Education on: n/a. bp 12:48 No provider procedures requiring assistance completed. Patient admitted, IV remains in bp place. Administered Medications: 10:45 Drug: MethylPrednisoLONE IVP 125 mg IVP once Route: IVP; Site: right wrist; bp 14:04 Follow up: Response: No adverse reaction bp 10:45 Drug: Levalbuterol Inhalation 3.75 mg Inhalation once Route: Inhalation; bp 10:45 Drug: Ipratropium Inhalation Aerosol 0.5 mg Inhalation once Route: Inhalation; bp 10:45 Drug: levofloxacin IVPB 500 mg 100 ml IVPB once over 60 mins Volume: 100 ml; Route: bp IVPB; Infused Over: 60 mins; Site: right wrist; 14:04 Follow up: IV Status: Completed infusion bp 10:45 Drug: NS 0.9% IV 500 ml 500 ml IV at 1 bolus once; to be given as a bolus over 30 bp minutes Volume: 500 ml; Route: IV; Rate: 1 bolus; Site: right wrist; 14:03 Follow up: IV Status: Completed infusion; IV Intake: 500ml bp 10:45 Drug: NS 0.9% IV 1000 ml IV at 125 ml/hr continuous Route: IV; Rate: 125 ml/hr; Site: bp right wrist; 14:04 Follow up: IV Status: Infusion continued upon admission bp 10:45 Drug: Famotidine IVP 20 mg IVP once; dilute with 10 mL 0.9% NaCl; give over 2 minutes bp Route: IVP; Site: right wrist; 14:04 Follow up: Response: No adverse reaction bp 10:45 Drug: Levalbuterol Inhalation 2.5 mg Inhalation once Route: Inhalation; bp 10:45 Drug: predniSONE PO 60 mg PO once Route: PO; bp 14:03 Follow up: Response: No adverse reaction bp 10:46 Drug: Magnesium Sulfate IVPB 2 grams IVPB once over 1 hrs Route: IVPB; Infused Over: 1 bp hrs; Site: right wrist; 14:04 Follow up: IV Status: Completed infusion bp 12:01 Drug: Pantoprazole IVP 40 mg IVP once Route: IVP; Site: right wrist; bp 14:03 Follow up: Response: No adverse reaction bp Medication: 12:48 VIS not applicable for this client. bp Intake: 14:03 IV: 500ml; Total: 500ml. bp Outcome: 10:24 Decision to Hospitalize by Provider. pilar 12:47 Admitted to Med/surg accompanied by tech, via wheelchair, room 407, with chart, bp 12:47 Condition: stable 12:47 Instructed on the need for admit, 14:26 Patient left the ED. bp Signatures: Dispatcher [employer] EDMS Luís Shepherd MD MD cha Peltier, Brian, RN RN bp Ramya Lee RN RN ll1 Lupe Guzmán
--- NOTE | 2024-07-15 10:25 | EDPHYS ---
Physician Documentation [facility] Name: Fuentes Yarbrough Jr Age: 69 yrs Sex: Male : 1955 Arrival Date: 07/15/2024 Time: 09:45 Bed 17 Private MD: ED Physician Luís Shepherd HPI: 07/15 10:02 This 69 yrs old Male presents to ER via Ambulatory with complaints of pilar Shortness Of Breath, COPD Exacerbation. 10:02 The patient has shortness of breath at rest, with light activity. Onset: The pilar symptoms/episode began/occurred 1 week(s) ago. Duration: The symptoms are continuous, and are steadily getting worse. The patient's shortness of breath is aggravated by exertion, light activity. Associated signs and symptoms: The patient has no apparent associated signs or symptoms. Severity of symptoms: At their worst the symptoms were mild in the emergency department the symptoms are unchanged. The patient has not experienced similar symptoms in the past. Historical: - Allergies: 10:00 No Known Allergies; ll1 - PMHx: 10:00 COPD; ll1 - PSHx: 10:00 None; ll1 - Immunization history:: Adult Immunizations up to date. - Infectious Disease History:: Denies. - Social history:: Smoking status: Patient/guardian denies using tobacco, the patient reports quitting approximately 2 years ago. - Family history:: not pertinent. ROS: 10:02 Constitutional: Negative for fever, chills, and weight loss, Eyes: Negative for injury, pilar pain, redness, and discharge, ENT: Negative for injury, pain, and discharge, Neck: Negative for injury, pain, and swelling, Cardiovascular: Negative for chest pain, palpitations, and edema, Abdomen/GI: Negative for abdominal pain, nausea, vomiting, diarrhea, and constipation, Back: Negative for injury and pain, : Negative for injury, bleeding, discharge, and swelling, MS/Extremity: Negative for injury and deformity, Skin: Negative for injury, rash, and discoloration, Neuro: Negative for headache, weakness, numbness, tingling, and seizure, Psych: Negative for depression, anxiety, suicide ideation, homicidal ideation, and hallucinations, Allergy/Immunology: Negative for hives, rash, and allergies, Endocrine: Negative for neck swelling, polydipsia, polyuria, polyphagia, and marked weight changes, Hematologic/Lymphatic: Negative for swollen nodes, abnormal bleeding, and unusual bruising, 10:02 Respiratory: Positive for cough, shortness of breath, wheezing, expiratory, Exam: 10:02 Constitutional: This is a well developed, well nourished patient who is awake, alert, pilar and in no acute distress. Head/Face: Normocephalic, atraumatic. Eyes: Pupils equal round and reactive to light, extra-ocular motions intact. Lids and lashes normal. Conjunctiva and sclera are non-icteric and not injected. Cornea within normal limits. Periorbital areas with no swelling, redness, or edema. ENT: Nares patent. No nasal discharge, no septal abnormalities noted. Tympanic membranes are normal and external auditory canals are clear. Oropharynx with no redness, swelling, or masses, exudates, or evidence of obstruction, uvula midline. Mucous membranes moist. Neck: Trachea midline, no thyromegaly or masses palpated, and no cervical lymphadenopathy. Supple, full range of motion without nuchal rigidity, or vertebral point tenderness. No Meningismus. Chest/axilla: Normal chest wall appearance and motion. Nontender with no deformity. No lesions are appreciated. Cardiovascular: Regular rate and rhythm with a normal S1 and S2. No gallops, murmurs, or rubs. Normal PMI, no JVD. No pulse deficits. Abdomen/GI: Soft, non-tender, with normal bowel sounds. No distension or tympany. No guarding or rebound. No evidence of tenderness throughout. Back: No spinal tenderness. No costovertebral tenderness. Full range of motion. Male : Normal genitalia with no discharge or lesions. Skin: Warm, dry with normal turgor. Normal color with no rashes, no lesions, and no evidence of cellulitis. MS/ Extremity: Pulses equal, no cyanosis. Neurovascular intact. Full, normal range of motion. Neuro: Awake and alert, GCS 15, oriented to person, place, time, and situation. Cranial nerves II-XII grossly intact. Motor strength 5/5 in all extremities. Sensory grossly intact. Cerebellar exam normal. Normal gait. Psych: Awake, alert, with orientation to person, place and time. Behavior, mood, and affect are within normal limits. 10:02 Respiratory: the patient does not display signs of respiratory distress, Respirations: normal, Breath sounds: decreased breath sounds, that are moderate, are scattered, rhonchi, that are mild, are scattered, stridor, is not appreciated, wheezing: expiratory is scattered, Respiratory rate: 22 10:12 ECG was reviewed by the Attending Physician. [facility] Vital Signs: 10:00 BP 142 / 59; Pulse 82; Resp 22; Temp 97.3; Pulse Ox 97% on R/A; Weight 104.33 kg; ll1 Height 5 ft. 10 in. ; Pain 0/10; 11:11 BP 121 / 69; Pulse 81; Resp 19; Pulse Ox 98% on 3 lpm NC; bp 12:24 BP 125 / 50; Pulse 89; Resp 16; Pulse Ox 99% ; bp 12:47 BP 125 / 56; Pulse 80; Resp 19; Temp 98.1; Pulse Ox 97% on 3 lpm NC; bp 14:02 BP 124 / 91; Pulse 82; Resp 19; Pulse Ox 97% on 3 lpm NC; bp 10:00 Body Mass Index 33.00 (104.33 kg, 177.8 cm) ll1 10:00 Pain Scale: Adult ll1 MDM: 09:47 Medical Screening Exam initiated [facility] 10:12 Differential diagnosis: Anemia asthma, Bronchitis CHF exacerbation, Chronic Obstructive pilar Pulmonary Disease Myocardial Infarction pneumonia, pulmonary edema, Pulmonary Embolism reactive airway disease, Sepsis Unstable Angina. Antibiotic administration: Levaquin given. Immunization status: Pneumococcal vaccine: within last 5 years. Influenza vaccine: within last 5 years. Data reviewed: vital signs, nurses notes, lab test result(s), EKG, radiologic studies, plain films. Consideration of Admission/Observation Patient was admitted/placed on observation. Escalation of care including admission/observation considered. I considered the following discharge prescriptions or medication management in the emergency department Medications were administered in the Emergency Department. See MAR. Historians other than the Patient: pt well informed. 07/15 09:49 Order name: Basic Metabolic Panel; Complete Time: :53 [facility] 07/15 09:49 Order name: CBC with Diff; Complete Time: 11:24 [facility] 07/15 09:49 Order name: LFT's; Complete Time: 11:53 [facility] 07/15 09:49 Order name: Magnesium; Complete Time: :53 [facility] 07/15 09:49 Order name: NT PRO-BNP; Complete Time: 11:53 [facility] 07/15 09:49 Order name: PT-INR; Complete Time: 11:24 [facility] 07/15 09:49 Order name: Troponin HS; Complete Time: 11:53 [facility] 07/15 09:49 Order name: Blood Culture Adult (2) [facility] 07/15 09:49 Order name: Lactate w/ 2H reflex if indic.; Complete Time: 11:53 [facility] 07/15 09:49 Order name: Flu; Complete Time: 11:53 [facility] 07/15 09:49 Order name: SARS RAPID; Complete Time: 11:33 [facility] 07/15 09:57 Order name: ABG; Complete Time: 10:50 [facility] 07/15 10:34 Order name: Type And Screen; Complete Time: 11:53 [facility] 07/15 12:10 Order name: ABO/RH no charge EDMS 07/15 09:49 Order name: XRAY Chest (1 view) [facility] 07/15 09:49 Order name: Cardiac monitoring; Complete Time: 10:45 [facility] 07/15 09:49 Order name: EKG - Nurse/Tech; Complete Time: 10:45 [facility] 07/15 09:49 Order name: IV Saline Lock; Complete Time: 10:45 [facility] 07/15 09:49 Order name: Labs collected and sent; Complete Time: 10:45 [facility] 07/15 09:49 Order name: O2 Per Protocol; Complete Time: 10:44 [facility] 07/15 09:49 Order name: O2 Sat Monitoring; Complete Time: 10:44 [facility] EC:12 Rate is 85 beats/min. Rhythm is regular. QRS [place] is Normal. [place] interval is normal. QRS pilar interval is normal. QT interval is normal. No Q waves. T waves are Normal. No ST changes noted. Clinical impression: NSR w/ Non-specific ST/T Changes and No evidence of ischemia. Interpreted by me. Reviewed by me. Administered Medications: 10:45 Drug: MethylPrednisoLONE IVP 125 mg IVP once Route: IVP; Site: right wrist; bp 14:04 Follow up: Response: No adverse reaction bp 10:45 Drug: Levalbuterol Inhalation 3.75 mg Inhalation once Route: Inhalation; bp 10:45 Drug: Ipratropium Inhalation Aerosol 0.5 mg Inhalation once Route: Inhalation; bp 10:45 Drug: levofloxacin IVPB 500 mg 100 ml IVPB once over 60 mins Volume: 100 ml; Route: bp IVPB; Infused Over: 60 mins; Site: right wrist; 14:04 Follow up: IV Status: Completed infusion bp 10:45 Drug: NS 0.9% IV 500 ml 500 ml IV at 1 bolus once; to be given as a bolus over 30 bp minutes Volume: 500 ml; Route: IV; Rate: 1 bolus; Site: right wrist; 14:03 Follow up: IV Status: Completed infusion; IV Intake: 500ml bp 10:45 Drug: NS 0.9% IV 1000 ml IV at 125 ml/hr continuous Route: IV; Rate: 125 ml/hr; Site: bp right wrist; 14:04 Follow up: IV Status: Infusion continued upon admission bp 10:45 Drug: Famotidine IVP 20 mg IVP once; dilute with 10 mL 0.9% NaCl; give over 2 minutes bp Route: IVP; Site: right wrist; 14:04 Follow up: Response: No adverse reaction bp 10:45 Drug: Levalbuterol Inhalation 2.5 mg Inhalation once Route: Inhalation; bp 10:45 Drug: predniSONE PO 60 mg PO once Route: PO; bp 14:03 Follow up: Response: No adverse reaction bp 10:46 Drug: Magnesium Sulfate IVPB 2 grams IVPB once over 1 hrs Route: IVPB; Infused Over: 1 bp hrs; Site: right wrist; 14:04 Follow up: IV Status: Completed infusion bp 12:01 Drug: Pantoprazole IVP 40 mg IVP once Route: IVP; Site: right wrist; bp 14:03 Follow up: Response: No adverse reaction bp Disposition Summary: 07/15/24 10:24 Hospitalization Ordered Notes: Hospitalization Status: Inpatient Admission pilar [facility] pilar Condition: Fair pilar Problem: an acute exacerbation pilar Symptoms: have improved pialr Bed/Room Type: Standard pilar Provider: Curt Perla(07/15/24 11:25) pilar Room Assignment: [facility](07/15/24 13:42) bd Diagnosis - Dyspnea pilar - COPD/ Chronic obstructive pulmonary disease with (acute) exacerbation - failed out pilar patient treatment - Obesity, unspecified pilar - Anemia, unspecified pilar Forms: - Medication Reconciliation Form pilar - SBAR form pilar - Leadership Thank You Letter pilar Signatures: Dispatcher [employer] EDMS DirrimLauren Corey, MD MD cha Peltier, Brian, RN RN bp Ramya Lee, RN RN ll1 Corrections: (The following items were deleted from the chart) 09:49 09:49 BASIC METABOLIC PANEL+C.LAB.BRZ ordered. EDMS EDMS 09:49 09:49 CBC+H.LAB.BRZ ordered. EDMS EDMS 09:49 09:49 HEPATIC FUNCTION+C.LAB.BRZ ordered. EDMS EDMS 09:49 09:49 MAGNESIUM+C.LAB.BRZ ordered. EDMS EDMS 09:49 09:49 PROBNP+C.LAB.BRZ ordered. EDMS EDMS 09:49 09:49 PROTIME (+INR)+COAG.LAB.BRZ ordered. EDMS EDMS 09:49 09:49 Troponin High Sensitivity+C.LAB.BRZ ordered. EDMS EDMS 09:49 09:49 BLOOD CULTURE*+BA.LAB.BRZ ordered. EDMS EDMS 09:49 09:49 LACTATE+C.LAB.BRZ ordered. EDMS EDMS 09:49 09:49 Influenza Screen (A \T\ B)+BA.LAB.BRZ ordered. EDMS EDMS 09:49 09:49 SARS-COV-2 Antigen Rapid+I.LAB.BRZ ordered. EDMS EDMS 09:49 09:49 Chest Single View+RAD.RAD.BRZ ordered. EDMS EDMS 10:46 09:58 BiPap ([employer] Only)+RC.RAD.BRZ ordered. EDMS EDMS 11:25 10:24 Chapin Noble [facility] 12:27 10:24 [facility] bd 13:42 12:27 [facility] bd
[2024-07-15 10:39] LABS: Arterial Blood Carboxyhemoglob 1.2 % (0-1.5); Blood Gas Oxyhemoglobin 89.3 % (94-97); Blood Gas THB 8.1 g/dl (12-18); Blood O2 Saturation 92.3 % (92-98.5)
[2024-07-15] MEDS ORDERED: predniSONE 20 MG TAB ONE (10:49)
[2024-07-15 11:12] LABS: Absolute Eosinophils 0.2 K/uL (0-0.5); Absolute Monocytes 0.6 K/uL (0.1-1.3); Absolute Neutrophil 7.4 K/uL (1.8-8.0); Basophils % 0.4 % (0-1.3); Eosinophils % 2.3 % (0-4.4); Hematocrit 25.6 % (39.6-49.0); Hemoglobin 7.8 g/dL (13.6-17.9); Lymphocytes % 11.2 % (15.3-44.8); MCH 24.4 pg (27.0-35.0); MCHC 30.3 g/dL (32.0-36.0); MCV 80.5 fL (80-100); MPV 8.5 fL (7.6-11.3); Monocytes % 6.7 % (3.3-12.3); Neutrophils % 79.4 % (41.7-73.7); Nucleated Red Blood Cells % 0.1 % (0-0); Platelets 326 thou/uL (152-406); RBC Red Blood Cell Count 3.18 M/uL (4.33-5.43); Red Cell Distribution Width 17.8 % (12.1-15.2)
[2024-07-15 11:13] LABS: PT Prothrombin Time 11.6 SECONDS (9.4-12.5); Protime INR 1.04
[2024-07-15 11:25] LABS: SARS-CoV-2 Antigen CONTROL BLUE LINE VIS/BG OK; SARS-CoV-2 Antigen Rapid Res Negative (Negative)
[2024-07-15 11:31] LABS: ALT/SGPT 25 U/L (16-61); AST/SGOT 13 U/L (15-37); Albumin 2.5 g/dL (3.4-5.0); Albumin/Globulin Ratio 0.7 (1.1-1.8); Alkaline Phosphatase 69 U/L (45-117); Anion Gap 7.1 mEq/L (5.0-15.0); BUN Blood Urea Nitrogen 20 mg/dL (7-18); Bicarbonate 32 mEq/L (21-32); Bilirubin Total 0.4 mg/dL (0.2-1.0); Globulin 3.7 g/dL (2.3-3.5); Glomerular Filtration Rate 97 ml/min (=/>90); Glucose Level 166 mg/dL (74-106); Magnesium 2.1 mg/dL (1.6-2.4); NT PRO-BNP 423 pg/mL (<125); Potassium 4.1 mEq/L (3.5-5.1); Protein, Total 6.2 g/dL (6.4-8.2); Sodium Level 139 mEq/L (136-145); Troponin High Sensitivity 12.7 pg/mL (<58.9)
[2024-07-15 11:35] LABS: Bilirubin Direct < 0.2 mg/dL (0-0.2); Bilirubin Indirect, Calculated 0.2 mg/dL (0.2-0.8)
[2024-07-15] MEDS ORDERED: PANTOPRAZOLE 40 MG INJ ONE (11:59)
[2024-07-15] MEDS ORDERED: ONDANSETRON 4 MG/2 ML VIAL IV PRN (12:56)
--- NOTE | 2024-07-15 14:40 | RAD REPORT ---
EXAMINATION: ONE VIEW CHEST XR CLINICAL INDICATION: Male, 69 years old.COPD TECHNIQUE: 1 View, AP supine, X-ray of the chest was performed. [id number]. COMPARISON: 06/11/2023 FINDINGS: Lungs and pleura: Mild linear opacities at the left lung base which are new from prior. No effusion. Heart and mediastinum: Normal heart size. Unremarkable mediastinal contours. Osseous structures: No acute abnormality. Tubes/lines: None Other: None. IMPRESSION: Mild linear opacities at the left lung base could reflect atelectasis and/or mild infection.
[2024-07-15 15:34] VITALS: BMI 33.9
--- NOTE | 2024-07-15 15:40 | P.HP ---
Certification for Inpatient Patient admitted to: Inpatient With expected LOS: <2 Midnights <Hannah Lobo - Last Filed: 07/15/24 16:03> Patient History Date of Service: 07/15/24 Reason for admission: Pneumonia History of Present Illness: 69-year-old male with a past medical history of Hypertensive disorder; COPD, lung Cancer with use of home O2 partial lung removal presents to the emergency room with shortness of breath. He reported symptoms started a week and a half ago. Shortness of breath is worse with exertion, worse with laying flat. He reports mild productive cough, dizziness, he reports previous hospital admissions with similar symptoms. He reports shortness of breath is getting progressively worse, he reports using nebulizer 4 times daily, he denies fever, chest pain, edema, ER evaluation 2 BP 139 / 78; Pulse 75; Resp 24; Temp 97.7(O), EKG Rate is 79 beats/min. Rhythm is regular. QRS Suring is Normal. SC interval is normal. No Q waves. T waves are Normal. No ST changes noted. Clinical impression: NSR w/ Non-specific ST/T Changes, x-ray IMPRESSION: Mild linear opacities at the left lung base could reflect atelectasis and/or mild infection., Laboratory evaluation no leukocytosis, left shift at 79.4, microcytic anemia 7.8 25.6, mildly elevated BNP 423, plan to admit for acute respiratory failure secondary left lobe pneumonia, acute on chronic COPD exacerbation, home O2 dependent with pulmonary to consult. - Past Medical/Surgical History Diabetic: No -: COPD -: lumbar herniations -: abd hernia -: depression -: Partial lung removal - Family History Mother -: Lung disease Notes: emphysema Father -: Lung disease Notes: emphysema, TB Sister -: Heart disease, Cancer Notes: breast CA - Social History Alcohol use: No CD- Drugs: No Caffeine use: Yes Place of Residence: Home <Hannah Lobo - Last Filed: 07/15/24 16:03> Date of Service: 07/15/24 <Curt Perla - Last Filed: 08/11/24 06:04> Allergies No Known Allergies Allergy (Verified 05/28/21 13:17) Home Medications: Ipratropium/Albuterol Sulfate [Iprat-Albut 0.5-3(2.5) mg/3 ml] 3 ml IH Q4HP PRN 06/22/15 Omeprazole [Prilosec] 40 mg PO BID 11/29/21 traMADol HCL [Ultram*] 1 tab PO DAILY 11/29/21 Levalbuterol [Xopenex*] 2 puff IH Q4H PRN 11/17/22 Aspirin Chewable [Aspirin Chewable*] 81 mg PO DAILY tab.chew 11/18/22 Roflumilast [Daliresp*] 500 mcg PO DAILY 30 Days #30 tab 11/18/22 Atorvastatin Calcium [Lipitor] 80 mg PO BEDTIME 07/15/24 Clopidogrel Bisulfate [Plavix*] 75 mg PO DAILY 07/15/24 Metoprolol Succinate [Toprol Xl*] 25 mg PO DAILY 07/15/24 Quetiapine [Seroquel*] 150 mg PO BEDTIME 07/15/24 predniSONE [Prednisone*] 10 mg PO DAILY 07/15/24 Arformoterol Tartrate [Brovana] 15 mcg NEB BIDRESP #60 vial.neb 07/18/24 Furosemide [Lasix] 20 mg PO DAILY 30 Days #30 tab 07/19/24 predniSONE [Prednisone*] 20 mg PO BID #20 tab 07/22/24 Review of Systems 10-point ROS is otherwise unremarkable General: As per HPI <Hannah Lobo - Last Filed: 07/15/24 16:03> Physical Examination - Vital Signs Temperature: 98.1 F Blood Pressure: 124/91 Pulse: 82 Respirations: 19 - Physical Exam General: Alert, Oriented x3, Mild distress HEENT: Atraumatic, Normocephalic Neck: Supple, Without JVD or thyroid abnormality Respiratory: Expiratory wheezes, Inspiratory wheezes Cardiovascular: Normal pulses, Regular rate/rhythm, Normal S1 S2 Capillary refill: <2 Seconds Gastrointestinal: Normal bowel sounds, Soft and benign, Other (Obese) Musculoskeletal: No swelling, No contractures Integumentary: No breakdown, No significant lesion Neurological: Normal speech, Normal strength at 5/5 x4 extr, Cranial nerves 3-12 intact - Studies Laboratory Data (last 24 hrs) 07/15/24 07/15/24 07/15/24 10:45 10:45 10:45 WBC 9.30 Hgb 7.8 L Hct 25.6 L Plt Count 326 PT 11.6 INR 1.04 Sodium 139 Potassium 4.1 BUN 20 H Creatinine 0.77 Glucose 166 H Magnesium 2.1 Total Bilirubin 0.4 AST 13 L ALT 25 Alkaline Phosphatase 69 Microbiology Data (last 24 hrs): 07/15/24 10:45 Nasopharnyx Influenza Type A Antigen Screen - Final 07/15/24 10:45 Nasopharnyx Influenza Type B Antigen Screen - Final <Nikko Loboy - Last Filed: 07/15/24 16:03> Assessment and Plan - Problems (Diagnosis) (1) Pneumonia Status: Acute Qualifiers: Pneumonia type: due to unspecified organism Laterality: left (2) Acute respiratory failure with hypoxia Status: Acute (3) COPD exacerbation Onset Date: 06/23/15 Status: Acute (4) Leukocytosis Onset Date: 06/23/15 Status: Acute (5) Sleep apnea Status: Acute Qualifiers: Sleep apnea type: obstructive Qualified Code(s): G47.33 - Obstructive sleep apnea (adult) (pediatric) (6) History of lung cancer Status: Acute - Plan Admit to [facility] Pulmonary consult O2 2 L keep sats greater than 92% Nebs, steroids, resume home inhalers Leukocytosis, left shift, trend WBCs, neutrophils History of lung CA, Dependence on home O2 Microcytic anemia Trend H&H, transfuse less than 7, type and cross GERD PPI, 69-year-old male with a past medical history of Hypertensive disorder; Lung Cancer with use of home O2 partial lung removal presents to the emergency room with shortness of breath. He reported symptoms started a week and a half ago. Shortness of breath is worse with exertion, worse with laying flat. He reports mild productive cough, dizziness, he reports previous hospital admissions with similar symptoms. He reports shortness of breath is getting progressively worse, he reports using nebulizer 4 times daily, he denies fever, chest pain, edema, ER evaluation 2 BP 139 / 78; Pulse 75; Resp 24; Temp 97.7(O), EKG Rate is 79 beats/min. Rhythm is regular. QRS Suring is Normal. SC interval is normal. No Q waves. T waves are Normal. No ST changes noted. Clinical impression: NSR w/ Non-specific ST/T Changes, x-ray IMPRESSION: Mild linear opacities at the left lung base could reflect atelectasis and/or mild infection., Laboratory evaluation no leukocytosis, left shift at 79.4, microcytic anemia 7.8 25.6, mildly elevated BNP 423, Discharge Plan: Home - Advance Directives Does patient have a Living Will: No Does patient have a Durable POA for Healthcare: No - Code Status/Comfort Care Code Status: Full Code Critical Care: No Time Spent Managing Pts Care (In Minutes): 55 <Hannah Lobo - Last Filed: 07/15/24 16:03> Date of Service: 07/15/24 Chart has been reviewed. Events of the last 24 hours have been noted. Case discussed with LUCINA. I performed a substantial part of the MDM during this patient's care today. I personally made or approved the documented management plan and acknowledge its risk of complications. I agree with the findings and documentation provided in the LUCINA's notes <Curt Perla - Last Filed: 08/11/24 06:04>
[2024-07-15] MEDS: METHYLPREDNISOLONE 125 MG INJ IV SCH (17:57)
[2024-07-15] MEDS: TRAMADOL HCL 50 MG TAB PO PRN (20:03)
[2024-07-15] MEDS: QUETIAPINE 100MG TAB PO SCH (20:04)
[2024-07-15] MEDS: ATORVASTATIN 80 MG TAB PO SCH (20:05)
[2024-07-15] MEDS: ALBUTEROL 2.5 MG/3 ML NEB SOL NEB PRN (21:55)
[2024-07-15] MEDS: IPRATROPIUM BROM 0.5MG/2.5ML NEB PRN (21:55)
[2024-07-16] MEDS: ALPRAZOLAM 0.25 MG TABLET PO PRN
[2024-07-16] MEDS: ACETAMINOPHEN 500 MG TAB PO PRN (01:54)
[2024-07-16] MEDS: TRAZODONE 50 MG TABLET PO PRN (03:11)
[2024-07-16 06:35] LABS: Absolute Basophils 0.1 K/uL (0-0.5); Absolute Lymphocytes (CBC) 0.4 K/uL (0.7-4.9); Absolute Monocytes 0.3 K/uL (0.1-1.3); Absolute Neutrophil 9.9 K/uL (1.8-8.0); Basophils % 1.1 % (0-1.3); Hematocrit 24.6 % (39.6-49.0); Hemoglobin 7.7 g/dL (13.6-17.9); Lymphocytes % 3.6 % (15.3-44.8); MCH 24.9 pg (27.0-35.0); MCHC 31.3 g/dL (32.0-36.0); MCV 79.7 fL (80-100); MPV 7.8 fL (7.6-11.3); Monocytes % 2.8 % (3.3-12.3); Neutrophils % 92.5 % (41.7-73.7); Nucleated Red Blood Cells % 0.1 % (0-0); Platelets 351 thou/uL (152-406); RBC Red Blood Cell Count 3.09 M/uL (4.33-5.43); Red Cell Distribution Width 17.9 % (12.1-15.2)
[2024-07-16 06:47] LABS: Anion Gap 8.4 mEq/L (5.0-15.0); Magnesium 2.5 mg/dL (1.6-2.4); Potassium 4.4 mEq/L (3.5-5.1)
--- NOTE | 2024-07-16 08:54 | EKG ---
Test Date: 2024-07-15 Test Time: 10:04:21 Neurology Technologist: SONAL MEASUREMENT RESULTS: Intervals: Rate: 85 W[place]: 166 QRSD: 74 QT: 352 QTc: 418 [place]: P: [place]: 166 QRS: 57 T: 67 INTERPRETIVE STATEMENTS: Sinus rhythm with premature supraventricular complexes Otherwise normal ECG Compared to ECG 11/16/2022 10:19:52 Atrial premature complex(es) now present Electronically Signed On 07-16-24 08:52:14 PAI GOW DEALER by Boo Cruz
[2024-07-16] MEDS: METOPROLOL XL 25 MG TAB PO SCH (09:20)
[2024-07-16] MEDS: CLOPIDOGREL 75 MG TABLET PO SCH (09:20)
[2024-07-16] MEDS: Levofloxacin 750mg IV 750 MG/150 ML BAG IV SCH (09:20)
[2024-07-16 09:26] LABS: Anisocytosis 1+; Blood Morphology Comment NOTED (NOT SEEN); Differential Total Cells Count 100; Eosinophils 1 % (0-3); Lymphocytes 6 % (15-42); Monocytes 1 % (0-10); Platelet Estimate ADEQ; Segmented Neutrophils 92 % (40-80)
[2024-07-16 09:27] LABS: Burr Cells 1+; Microcytosis 1+; Teardrop Cell FEW
--- NOTE | 2024-07-16 09:38 | RAD REPORT ---
EXAMINATION: CTA CHEST AORTA CLINICAL INDICATION: Male, 69 years old [facility] MAIN RO PE TECHNIQUE: This examination was performed according to an angiographic protocol with 3D post-processi ng. This involves 3D reconstructions, MIPs, volume rendered images and/or shaded surface rendering. One or more of the following dose reduction techniques were used: Automated exposure control, adjustm ent of the mA and/or kV according to patient size, and/or iterative reconstruction. Unless otherwise specified, incidental findings do not require dedicated imaging follow-up. [id number]. COMPARISON: Yesterday's chest radiograph, chest CT 12/25/2020 FINDINGS: LOWER NECK: Visualized thyroid gland and soft tissues are normal. LUNGS AND AIRWAYS: Moderate to advanced centrilobular and paraseptal emphysema. Mild bronchiectasis. No suspicious for nodule. PLEURA: No pleural effusion. No pneumothorax. Hemidiaphragms are normally positioned. MEDIASTINUM AND LYMPH NODES: No mediastinal mass or fluid collection. Normal size mediastinal, hilar, and axillary lymph nodes. THORACIC AORTA: Normal caliber and configuration. No evidence of intramural hematoma or dissection. PULMONARY ARTERIES: Mild enlargement of the main pulmonary artery. No pulmonary embolus identified. HEART: Multivessel coronary artery disease. Aortic valve calcifications. OSSEOUS STRUCTURES AND CHEST WALL: Intact. UPPER ABDOMEN: No acute or significant abnormalities. IMPRESSION: No pulmonary embolus identified. Pulmonary artery enlargement could indicate pulmonary hypertension. Moderate to advanced emphysema.
--- NOTE | 2024-07-16 12:01 | P.CNS ---
Date of Consult: 07/16/24 Reason for Consult: Shortness of breath Chief Complaint: Shortness of breath History of Present Illness: Patient is 69 years of age with a history of COPD on home oxygen admitted with acute onset of shortness of breath he is unable to do any form of activity w ithout becoming very short of breath denies any history of GI bleeding no cough congestion no fever or chills Allergies No Known Allergies Allergy (Verified 05/28/21 13:17) Home Medications: Ipratropium/Albuterol Sulfate [Iprat-Albut 0.5-3(2.5) mg/3 ml] 3 ml IH Q4HP PRN 06/22/15 Omeprazole [Prilosec] 40 mg PO BID 11/29/21 traMADol HCL [Ultram*] 1 tab PO DAILY 11/29/21 Levalbuterol [Xopenex*] 2 puff IH Q4H PRN 11/17/22 Aspirin Chewable [Aspirin Chewable*] 81 mg PO DAILY tab.chew 11/18/22 Roflumilast [Daliresp*] 500 mcg PO DAILY 30 Days #30 tab 11/18/22 Atorvastatin Calcium [Lipitor] 80 mg PO BEDTIME 07/15/24 Clopidogrel Bisulfate [Plavix*] 75 mg PO DAILY 07/15/24 Metoprolol Succinate [Toprol Xl] 25 mg PO DAILY 07/15/24 Quetiapine [Seroquel] 150 mg PO BEDTIME 07/15/24 predniSONE [Prednisone*] 10 mg PO DAILY 07/15/24 - Past Medical/Surgical History Diabetic: No -: COPD -: lumbar herniations -: abd hernia -: depression -: Partial lung removal - Family History Mother Medical History: Lung disease Notes: emphysema Father Medical History: Lung disease Notes: emphysema, TB Sister Medical History: Heart disease, Cancer Notes: breast CA - Social History Smoking Status: Current some day smoker Alcohol use: No CD- Drugs: No Caffeine use: Yes Place of Residence: Home Review of Systems 10-point ROS is otherwise unremarkable General: Weakness Respiratory: Shortness of Breath Physical Examination Temp Pulse Resp BP Pulse Ox 98.3 F 88 17 151/81 H 98 07/16/24 11:38 07/16/24 11:38 07/16/24 11:38 07/16/24 11:38 07/16/24 11:38 General: Alert, Oriented x3 Neck: Supple Respiratory: Clear to auscultation bilaterally, Diminished Cardiovascular: No edema, Regular rate/rhythm, Normal S1 S2 - Problems (1) COPD exacerbation Onset Date: 06/23/15 Current Visit: No Status: Acute Plan: Patient is 69 years of age with a history of COPD admitted with worsening dyspnea CT scan does not show any evidence of pulmonary embolism or pneumonia patient on CT scan has significant paraseptal emphysema echocardiogram is pending underlying pulmonary hypertension and is anemic hemoglobin 7.7 he had an EGD colonoscopy done no obvious source of bleeding found patient was mildly hypoxic hypercarbic has home O2 continue with nebulizers steroids bronchodilator therapy there is no evidence of pneumonia continue p.o. prednisone DC antibiotics await echocardiogram possibility of pulmonary hypertension
[2024-07-16] MEDS: ALBUTEROL 2.5 MG/3 ML NEB SOL NEB SCH (12:11)
--- NOTE | 2024-07-16 13:05 | ECHO ---
HEIGHT: 5 ft 10 in WEIGHT: 236 lb 8 oz DATE OF STUDY: 07/16/[address]: Tal Stauffer MD 2-DIMENSIONAL: YES M.MODE: YES DOPPLER: YES COLOR FLOW: YES TDS: YES PORTABLE: YES DEFINITY: BUBBLE STUDY: DIAGNOSIS: SHORTNESS OF BREATH, DYSPNEA CARDIAC HISTORY: CATHERIZATION: YES SURGERY: NO PROSTHETIC VALVE: NO PACEMAKER: NO MEASUREMENTS (cm) DIASTOLIC (NORMALS) SYSTOLIC (NORMALS) IVSd 1.2 (0.6-1.2) LA Diam 3.2 (1.9-4.0) LVEF 55% LVIDd 5.5 (3.5-5.7) LVIDs 4.4 (2.0-3.5) %FS LVPWd 1.3 (0.6-1.2) Ao Diam 3.2 (2.0-3.7) 2 DIMENSIONAL ASSESSMENT: RIGHT ATRIUM: NORMAL LEFT ATRIUM: NORMAL RIGHT VENTRICLE: NORMAL LEFT VENTRICLE: MILD LEFT VENTRICULAR HYPERTROPHY TRICUSPID VALVE: MILD TRICUSPID REGURGITATION MITRAL VALVE: TRACE MITRAL REGURGITATION PULMONIC VALVE: NORMAL AORTIC VALVE: NOT WELL VISUALIZED PERICARDIAL EFFUSION: NONE AORTIC ROOT: MILDLY DILATED LEFT VENTRICULAR WALL MOTION: NORMAL DOPPLER/COLOR FLOW: DIASTOLIC DYSFUNCTION COMMENTS: 1. NORMAL LEFT VENTRICULAR SYSTOLIC FUNCTION, EJECTION FRACTION 55%, NORMAL WALL MOTION 2. DIASTOLIC DYSFUNCTION 3. MILD ELEVATED FILLING PRESSURE (RIGHT ATRIAL PRESSURE 5-10 mmHg) 4. MILD PULMONARY HYPERTENSION (RIGHT VENTRICULAR SYSTOLIC PRESSURE 35-40 mmHg) TECHNOLOGIST: WAYNE LANGFORD
[2024-07-16] MEDS: predniSONE 20 MG TAB PO SCH (19:50)
[2024-07-16 21:50] LABS: Renal Epithelial <5 /HPF (None Seen); Specific Gravity > 1.030 (1.005-1.030); Sqamous Epithelial <5 /HPF (None Seen); Urine Bacteria None Seen /HPF (<20); Urine Bilirubin NEGATIVE (Negative); Urine Blood Negative (Negative); Urine Clarity Clear (Clear); Urine Color Light-Yellow (Yellow); Urine Culture Reflex Order NOT NEEDED; Urine Glucose 4+ (Over) (Negative); Urine Ketones NEGATIVE (Negative); Urine Microscopic Reflex YN ORDER UMIC; Urine Nitrite NEGATIVE (Negative); Urine Protein TRACE (Negative); Urine RBC None Seen /HPF (None Seen); Urine Urobilinogen Normal (Normal); Urine WBC <5 /HPF (<5)
[2024-07-17] MEDS: ARFORMOTEROL TARTRATE 15 MCG/2 ML VIAL.NEB NEB SCH (10:00)
--- NOTE | 2024-07-17 12:02 | P.PN ---
Subjective Date of Service: 07/17/24 Chief Complaint: Shortness of breath No change in patient's condition is still continues to complain of significant shortness of breath Review of Systems 10-point ROS is otherwise unremarkable Respiratory: Shortness of Breath Physical Examination - Vital Signs Temperature: 97.8 F Blood Pressure: 134/65 Pulse: 83 Respirations: 18 Pulse Ox (%): 99 - Physical Exam General: Alert, In no apparent distress, Mild distress Respiratory: Clear to auscultation bilaterally, Diminished Cardiovascular: No edema, Regular rate/rhythm, Normal S1 S2 Assessment And Plan - Current Problems (Diagnosis) (1) COPD exacerbation Onset Date: 06/23/15 Current Visit: No Status: Acute Plan: Patient is 69 years of age admitted with worsening dyspnea presumed COPD exacerbation differential diagnosis includes diastolic heart failure BNP is elevated there is no evidence of thromboembolism echocardiogram suggest diastolic dysfunction has not improved despite optimal bronchodilator therapy will add some Lasix signs oxygenation satisfactory have impressive paraseptal emphysema patient has a mild microcytic anemia we will check iron studies repeat labs are pending
[2024-07-17] MEDS: IPRATROPIUM BROM 0.5MG/2.5ML NEB SCH (13:23)
[2024-07-17] MEDS: FUROSEMIDE 20 MG/ 2ML VIAL IV SCH (13:36)
[2024-07-17 16:55] LABS: Absolute Lymphocytes (CBC) 0.4 K/uL (0.7-4.9); Absolute Monocytes 0.6 K/uL (0.1-1.3); Absolute Neutrophil 10.7 K/uL (1.8-8.0); Hematocrit 25.8 % (39.6-49.0); Hemoglobin 7.7 g/dL (13.6-17.9); Lymphocytes % 3.7 % (15.3-44.8); MCH 24.1 pg (27.0-35.0); MCHC 30.1 g/dL (32.0-36.0); MCV 80.3 fL (80-100); MPV 8.2 fL (7.6-11.3); Monocytes % 5.4 % (3.3-12.3); Neutrophils % 90.9 % (41.7-73.7); Platelets 348 thou/uL (152-406); RBC Red Blood Cell Count 3.21 M/uL (4.33-5.43); Red Cell Distribution Width 17.6 % (12.1-15.2)
[2024-07-17 17:12] LABS: Anion Gap 5.4 mEq/L (5.0-15.0); Magnesium 2.2 mg/dL (1.6-2.4); Potassium 4.4 mEq/L (3.5-5.1)
[2024-07-17 17:17] LABS: Ferritin 10.3 ng/mL (26-388)
[2024-07-17] MEDS ORDERED: ARFORMOTEROL TARTRATE 15 MCG/2 ML VIAL.NEB NEB SCH (19:00)
[2024-07-18 06:37] LABS: Absolute Lymphocytes (CBC) 0.5 K/uL (0.7-4.9); Absolute Monocytes 0.6 K/uL (0.1-1.3); Absolute Neutrophil 8.9 K/uL (1.8-8.0); Basophils % 0.1 % (0-1.3); Hematocrit 26.1 % (39.6-49.0); Hemoglobin 8.1 g/dL (13.6-17.9); Lymphocytes % 5.4 % (15.3-44.8); MCH 24.9 pg (27.0-35.0); MCHC 31.3 g/dL (32.0-36.0); MCV 79.5 fL (80-100); MPV 8.3 fL (7.6-11.3); Monocytes % 5.7 % (3.3-12.3); Neutrophils % 88.8 % (41.7-73.7); Nucleated Red Blood Cells % 0.1 % (0-0); Platelets 344 thou/uL (152-406); RBC Red Blood Cell Count 3.28 M/uL (4.33-5.43)
[2024-07-18 06:53] LABS: Anion Gap 6.2 mEq/L (5.0-15.0); Magnesium 2.1 mg/dL (1.6-2.4); Potassium 4.2 mEq/L (3.5-5.1)
[2024-07-18] MEDS: ALBUTEROL 2.5 MG/3 ML NEB SOL NEB PRN (14:45)
--- NOTE | 2024-07-19 12:12 | P.PN ---
Subjective Date of Service: 07/19/24 Chief Complaint: Shortness of breath Patient has done better with use of diuretics able to ambulate Review of Systems General: Weakness Respiratory: Shortness of Breath Physical Examination - Vital Signs Temperature: 97.8 F Blood Pressure: 142/59 Pulse: 77 Respirations: 16 Pulse Ox (%): 99 - Physical Exam General: Alert, In no apparent distress, Oriented x3 Neck: No Thyromegaly Respiratory: Diminished Cardiovascular: No edema, Normal pulses Assessment And Plan - Current Problems (Diagnosis) (1) COPD exacerbation Onset Date: 06/23/15 Current Visit: No Status: Acute Plan: Patient admitted with presumed COPD exacerbation with the use of Lasix he is on maximum bronchodilator therapy and was intolerant to spironolactone that was discontinued by his cardiology will discharge patient on 20 mg of p.o. Lasix instead to her electrolytes may need some potassium replaced probably has underlying diastolic dysfunction patient does take Breztri at home started on 10 mg of prednisone which is his baseline dose chemistries reviewed stable for discharge
[2024-07-20 08:14] LABS: Absolute Monocytes 0.4 K/uL (0.1-1.3); Absolute Neutrophil 9.5 K/uL (1.8-8.0); Basophils % 0.1 % (0-1.3); Hematocrit 29.4 % (39.6-49.0); Hemoglobin 9.2 g/dL (13.6-17.9); Lymphocytes % 9.2 % (15.3-44.8); MCH 24.8 pg (27.0-35.0); MCHC 31.4 g/dL (32.0-36.0); MPV 8.7 fL (7.6-11.3); Monocytes % 4.1 % (3.3-12.3); Neutrophils % 86.6 % (41.7-73.7); Platelets 367 thou/uL (152-406); RBC Red Blood Cell Count 3.72 M/uL (4.33-5.43)
[2024-07-20 08:33] LABS: Albumin 3.1 g/dL (3.4-5.0); Albumin/Globulin Ratio 0.8 (1.1-1.8); Anion Gap 8.6 mEq/L (5.0-15.0); Bilirubin Total 0.4 mg/dL (0.2-1.0); Globulin 3.9 g/dL (2.3-3.5); Potassium 4.6 mEq/L (3.5-5.1)
--- NOTE | 2024-07-20 09:07 | RAD REPORT ---
EXAMINATION: ONE VIEW CHEST XR CLINICAL INDICATION: Male, 69 years old.,pneumonia TECHNIQUE: Frontal chest projection is submitted. Examination is limited by patient positioning and t echnique. COMPARISON: 07/15/2024 FINDINGS: The lungs are well inflated and clear. No pneumothorax or sizable effusion. The heart is normal in s ize. Mediastinal contours are unremarkable. IMPRESSION: No acute intrathoracic abnormalities.
[2024-07-20 09:44] LABS: Anisocytosis SLIGHT; Atypical Lymphocytes 2 %; Band Neutrophils 2 % (0-1); Blood Morphology Comment NOTED (NOT SEEN); Differential Total Cells Count 100; Lymphocytes 21 % (15-42); Metamyelocytes 6 % (0-0); Microcytosis 1+; Monocytes 11 % (0-10); Myelocytes 1 % (0-0); Platelet Estimate ADEQ; Platelets Clumped FEW; Segmented Neutrophils 57 % (40-80)
[2024-07-22 10:08] VITALS: O2SAT 98
[2024-07-22 13:04] VITALS: BP 124/64; TEMP 97.9
--- NOTE | 2024-08-11 06:04 | P.PN ---
Date of Service: 07/16/24 Subjective Patient continues to require IV antibiotic therapy. Continue with nebs, steroids, and O2 per protocol. Pulmonary consultation appreciated. Physical Examination - Vital Signs Reviewed - Physical Exam General: Alert, Oriented x3, Mild distress Respiratory: Expiratory wheezes, Inspiratory wheezes Cardiovascular: Normal pulses, Regular rate/rhythm, Normal S1 S2 Gastrointestinal: Normal bowel sounds, Soft and benign, Other (Obese) Musculoskeletal: No swelling, No contractures Integumentary: No breakdown, No significant lesion Neurological: No focal deficits Assessment and Plan - Problems (Diagnosis) (1) Pneumonia Current Visit: Yes Status: Acute Qualifiers: Pneumonia type: due to unspecified organism Laterality: left (2) Acute respiratory failure with hypoxia Current Visit: No Status: Acute (3) COPD exacerbation Onset Date: 06/23/15 Current Visit: No Status: Acute (4) Leukocytosis Onset Date: 06/23/15 Current Visit: No Status: Acute (5) Sleep apnea Current Visit: No Status: Acute Qualifiers: Sleep apnea type: obstructive Qualified Code(s): G47.33 - Obstructive sleep apnea (adult) (pediatric) (6) History of lung cancer Current Visit: Yes Status: Acute - Plan 1. Patient with hypoxic respiratory failure secondary to pneumonia and acute COPD exacerbation; continue with IV antibiotic therapy along with nebs and steroids. Patient clinical symptoms improving. Patient has a history of lung cancer with a partial lobectomy. Patient will need to continue with aggressive treatment for the infection. Anticipate patient improving over the next couple of days. BiPAP at night for sleep apnea and monitor labs closely. Discharge Plan: Home - Advance Directives Does patient have a Living Will: No Does patient have a Durable POA for Healthcare: No - Code Status/Comfort Care Code Status: Full Code Critical Care: No Time Spent Managing Pts Care (In Minutes): 30
--- NOTE | 2024-08-11 06:07 | P.PN ---
Date of Service: 07/17/24 Subjective Patient respiratory status has improved. Clinically symptoms are better. Continue with nebs, steroids, and antibiotics. Physical Examination - Vital Signs Reviewed - Physical Exam General: Alert, Oriented x3, Mild distress Respiratory: Expiratory wheezes, Inspiratory wheezes Cardiovascular: Normal pulses, Regular rate/rhythm, Normal S1 S2 Gastrointestinal: Normal bowel sounds, Soft and benign, Other (Obese) Musculoskeletal: No swelling, No contractures Integumentary: No breakdown, No significant lesion Neurological: No focal deficits Assessment and Plan - Problems (Diagnosis) (1) Pneumonia Current Visit: Yes Status: Acute Qualifiers: Pneumonia type: due to unspecified organism Laterality: left (2) Acute respiratory failure with hypoxia Current Visit: No Status: Acute (3) COPD exacerbation Onset Date: 06/23/15 Current Visit: No Status: Acute (4) Leukocytosis Onset Date: 06/23/15 Current Visit: No Status: Acute (5) Sleep apnea Current Visit: No Status: Acute Qualifiers: Sleep apnea type: obstructive Qualified Code(s): G47.33 - Obstructive sleep apnea (adult) (pediatric) (6) History of lung cancer Current Visit: Yes Status: Acute - Plan Continue with plan of care as mentioned below: 1. Patient with hypoxic respiratory failure secondary to pneumonia and acute COPD exacerbation; continue with IV antibiotic therapy along with nebs and steroids. Patient clinical symptoms improving. Patient has a history of lung cancer with a partial lobectomy. Patient will need to continue with aggressive treatment for the infection. Anticipate patient improving over the next couple of days. BiPAP at night for sleep apnea and monitor labs closely.Patient is doing better. Patient may need long term facility placement. Discharge Plan: Home - Advance Directives Does patient have a Living Will: No Does patient have a Durable POA for Healthcare: No - Code Status/Comfort Care Code Status: Full Code Critical Care: No Time Spent Managing Pts Care (In Minutes): 30
--- NOTE | 2024-08-11 06:09 | P.PN ---
Date of Service: 07/18/24 Subjective Continuing to improve and working with physical therapy. Out of bed and ambulating. Physical Examination - Vital Signs Reviewed - Physical Exam General: Alert, Oriented x3, Mild distress Respiratory: Expiratory wheezes, Inspiratory wheezes Cardiovascular: Normal pulses, Regular rate/rhythm, Normal S1 S2 Gastrointestinal: Normal bowel sounds, Soft and benign, Other (Obese) Musculoskeletal: No swelling, No contractures Integumentary: No breakdown, No significant lesion Neurological: No focal deficits Assessment and Plan - Problems (Diagnosis) (1) Pneumonia Current Visit: Yes Status: Acute Qualifiers: Pneumonia type: due to unspecified organism Laterality: left (2) Acute respiratory failure with hypoxia Current Visit: No Status: Acute (3) COPD exacerbation Onset Date: 06/23/15 Current Visit: No Status: Acute (4) Leukocytosis Onset Date: 06/23/15 Current Visit: No Status: Acute (5) Sleep apnea Current Visit: No Status: Acute Qualifiers: Sleep apnea type: obstructive Qualified Code(s): G47.33 - Obstructive sleep apnea (adult) (pediatric) (6) History of lung cancer Current Visit: Yes Status: Acute - Plan Continue with plan of care as mentioned below: Patient with hypoxic respiratory failure secondary to pneumonia and acute COPD exacerbation; 1. Continue with IV antibiotics 2. Continue with nebs, steroids 3. Repeat chest x-ray 4. Appreciate pulmonary recommendation 5. O2 per protocol 6. Continue with gentle hydration 7. Repeat labs 8. GI and DVT prophylaxis Discharge Plan: Home - Advance Directives Does patient have a Living Will: No Does patient have a Durable POA for Healthcare: No - Code Status/Comfort Care Code Status: Full Code Critical Care: No Time Spent Managing Pts Care (In Minutes): 30
--- NOTE | 2024-08-11 06:10 | P.PN ---
Date of Service: 07/19/24 Subjective Patient with no new changes. Clinical symptoms continue to improve. Overall patient doing much better. Anticipate discharge over the next 24 to 48 hours. Physical Examination - Vital Signs Reviewed - Physical Exam General: Alert, Oriented x3, Mild distress Respiratory: Expiratory wheezes, Inspiratory wheezes Cardiovascular: Normal pulses, Regular rate/rhythm, Normal S1 S2 Gastrointestinal: Normal bowel sounds, Soft and benign, Other (Obese) Musculoskeletal: No swelling, No contractures Integumentary: No breakdown, No significant lesion Neurological: No focal deficits Assessment and Plan - Problems (Diagnosis) (1) Pneumonia Current Visit: Yes Status: Acute Qualifiers: Pneumonia type: due to unspecified organism Laterality: left (2) Acute respiratory failure with hypoxia Current Visit: No Status: Acute (3) COPD exacerbation Onset Date: 06/23/15 Current Visit: No Status: Acute (4) Leukocytosis Onset Date: 06/23/15 Current Visit: No Status: Acute (5) Sleep apnea Current Visit: No Status: Acute Qualifiers: Sleep apnea type: obstructive Qualified Code(s): G47.33 - Obstructive sleep apnea (adult) (pediatric) (6) History of lung cancer Current Visit: Yes Status: Acute - Plan Continue with plan of care as mentioned below: Patient with hypoxic respiratory failure secondary to pneumonia and acute COPD exacerbation; 1. Continue with IV antibiotics 2. Continue with nebs, steroids 3. Repeat chest x-ray 4. Appreciate pulmonary recommendation 5. O2 per protocol 6. Continue with gentle hydration 7. Repeat labs 8. GI and DVT prophylaxis Discharge Plan: Home - Advance Directives Does patient have a Living Will: No Does patient have a Durable POA for Healthcare: No - Code Status/Comfort Care Code Status: Full Code Critical Care: No Time Spent Managing Pts Care (In Minutes): 30
--- NOTE | 2024-08-11 06:11 | P.PN ---
Date of Service: 07/20/24 Subjective Patient is overall doing much better. Patient is clinically improved. Continue with current plan of care and anticipate discharge in the morning. Physical Examination - Vital Signs Reviewed - Physical Exam General: Alert, Oriented x3, Mild distress Respiratory: Expiratory wheezes, Inspiratory wheezes Cardiovascular: Normal pulses, Regular rate/rhythm, Normal S1 S2 Gastrointestinal: Normal bowel sounds, Soft and benign, Other (Obese) Musculoskeletal: No swelling, No contractures Integumentary: No breakdown, No significant lesion Neurological: No focal deficits Assessment and Plan - Problems (Diagnosis) (1) Pneumonia Current Visit: Yes Status: Acute Qualifiers: Pneumonia type: due to unspecified organism Laterality: left (2) Acute respiratory failure with hypoxia Current Visit: No Status: Acute (3) COPD exacerbation Onset Date: 06/23/15 Current Visit: No Status: Acute (4) Leukocytosis Onset Date: 06/23/15 Current Visit: No Status: Acute (5) Sleep apnea Current Visit: No Status: Acute Qualifiers: Sleep apnea type: obstructive Qualified Code(s): G47.33 - Obstructive sleep apnea (adult) (pediatric) (6) History of lung cancer Current Visit: Yes Status: Acute - Plan Continue with plan of care as mentioned below: Patient with hypoxic respiratory failure secondary to pneumonia and acute COPD exacerbation; 1. Continue with IV antibiotics 2. Continue with nebs, steroids 3. Repeat chest x-ray 4. Appreciate pulmonary recommendation 5. O2 per protocol 6. Continue with gentle hydration 7. Repeat labs 8. DC planning with home health 9. GI and DVT prophylaxis Discharge Plan: Home - Advance Directives Does patient have a Living Will: No Does patient have a Durable POA for Healthcare: No - Code Status/Comfort Care Code Status: Full Code Critical Care: No Time Spent Managing Pts Care (In Minutes): 30
--- NOTE | 2024-08-11 06:13 | P.PN ---
Date of Service: 07/21/24 Subjective Patient respiratory status has improved. Breathing much better. Patient denies any new complaints. Plan to discharge in a.m. Physical Examination - Vital Signs Reviewed - Physical Exam General: Alert, Oriented x3, Mild distress Respiratory: Expiratory wheezes, Inspiratory wheezes Cardiovascular: Normal pulses, Regular rate/rhythm, Normal S1 S2 Gastrointestinal: Normal bowel sounds, Soft and benign, Other (Obese) Musculoskeletal: No swelling, No contractures Integumentary: No breakdown, No significant lesion Neurological: No focal deficits Assessment and Plan - Problems (Diagnosis) (1) Pneumonia Current Visit: Yes Status: Acute Qualifiers: Pneumonia type: due to unspecified organism Laterality: left (2) Acute respiratory failure with hypoxia Current Visit: No Status: Acute (3) COPD exacerbation Onset Date: 06/23/15 Current Visit: No Status: Acute (4) Leukocytosis Onset Date: 06/23/15 Current Visit: No Status: Acute (5) Sleep apnea Current Visit: No Status: Acute Qualifiers: Sleep apnea type: obstructive Qualified Code(s): G47.33 - Obstructive sleep apnea (adult) (pediatric) (6) History of lung cancer Current Visit: Yes Status: Acute - Plan Continue with plan of care as mentioned below: Patient with hypoxic respiratory failure secondary to pneumonia and acute COPD exacerbation; 1. Continue with IV antibiotics; Changed to oral antibiotics 2. Continue with nebs, steroids; Changed to oral steroids 3. Chest x-ray with no progression of pneumonia 4. Outpatient pulmonary recommendation 5. O2 per protocol 6. Hep-Lock IV 7. Repeat labs 8. DC planning with home health 9. GI and DVT prophylaxis Discharge Plan: Home - Advance Directives Does patient have a Living Will: No Does patient have a Durable POA for Healthcare: No - Code Status/Comfort Care Code Status: Full Code Critical Care: No Time Spent Managing Pts Care (In Minutes): 30
--- NOTE | 2024-08-11 06:15 | P.DS ---
Discharge Date: 07/22/24 Disposition: ROUTINE DISCHARGE Discharge Condition: GOOD Reason for Admission: Shortness of breath Consultations: Pulmonary Brief History of Present Illness: 69-year-old male with a past medical history of Hypertensive disorder; COPD, lung Cancer with use of home O2 partial lung removal presents to the emergency room with shortness of breath. He reported symptoms started a week and a half ago. Shortness of breath is worse with exertion, worse with laying flat. He reports mild productive cough, dizziness, he reports previous hospital admissions with similar symptoms. He reports shortness of breath is getting progressively worse, he reports using nebulizer 4 times daily, he denies fever, chest pain, edema, ER evaluation 2 BP 139 / 78; Pulse 75; Resp 24; Temp 97.7(O), EKG Rate is 79 beats/min. Rhythm is regular. QRS [place] is Normal. DC interval is normal. No Q waves. T waves are Normal. No ST changes noted. Clinical impression: NSR w/ Non-specific ST/T Changes, x-ray IMPRESSION: Mild linear opacities at the left lung base could reflect atelectasis and/or mild infection., Laboratory evaluation no leukocytosis, left shift at 79.4, microcytic anemia 7.8 25.6, mildly elevated BNP 423, plan to admit for acute respiratory failure secondary left lobe pneumonia, acute on chronic COPD exacerbation, home O2 dependent with pulmonary to consult. Hospital Course: Patient improved with nebulizers, steroids, antibiotics. Patient was on oxygen during hospitalization but patient has improved. Will check room air O2 sats and if stable then patient may not need home oxygen. Overall patient is doing much better and dissipate discharge home later today with outpatient follow-up as mentioned above. Vital Signs/Physical Exam: Temp Pulse Resp BP Pulse Ox 97.9 F 80 18 124/64 97 07/22/24 12:00 07/22/24 12:00 07/22/24 12:00 07/22/24 12:00 07/22/24 12:00 General: Alert, In no apparent distress, Oriented x3 Laboratory Data at Discharge: WBC 10.90 thou/uL (4.3-10.9) 07/20/24 07:12 Hgb 9.2 g/dL (13.6-17.9) L 07/20/24 07:12 Hct 29.4 % (39.6-49.0) L 07/20/24 07:12 Plt Count 367 thou/uL (152-406) 07/20/24 07:12 PT 11.6 SECONDS (9.4-12.5) 07/15/24 10:45 INR 1.04 07/15/24 10:45 Sodium 138 mEq/L (136-145) 07/20/24 07:12 Potassium 4.6 mEq/L (3.5-5.1) 07/20/24 07:12 BUN 40 mg/dL (7-18) H 07/20/24 07:12 Creatinine 0.98 mg/dL (0.70-1.30) 07/20/24 07:12 Glucose 205 mg/dL (74-106) H 07/20/24 07:12 Magnesium 2.1 mg/dL (1.6-2.4) 07/18/24 05:36 Total Bilirubin 0.4 mg/dL (0.2-1.0) 07/20/24 07:12 AST 18 U/L (15-37) 07/20/24 07:12 ALT 43 U/L (16-61) 07/20/24 07:12 Alkaline Phosphatase 77 U/L (45-117) 07/20/24 07:12 Home Medications: Ipratropium/Albuterol Sulfate [Iprat-Albut 0.5-3(2.5) mg/3 ml] 3 ml IH Q4HP PRN 06/22/15 Omeprazole [Prilosec] 40 mg PO BID 11/29/21 traMADol HCL [Ultram*] 1 tab PO DAILY 11/29/21 Levalbuterol [Xopenex*] 2 puff IH Q4H PRN 11/17/22 Aspirin Chewable [Aspirin Chewable*] 81 mg PO DAILY tab.chew 11/18/22 Roflumilast [Daliresp*] 500 mcg PO DAILY 30 Days #30 tab 11/18/22 Atorvastatin Calcium [Lipitor] 80 mg PO BEDTIME 07/15/24 Clopidogrel Bisulfate [Plavix*] 75 mg PO DAILY 07/15/24 Metoprolol Succinate [Toprol Xl*] 25 mg PO DAILY 07/15/24 Quetiapine [Seroquel*] 150 mg PO BEDTIME 07/15/24 predniSONE [Prednisone*] 10 mg PO DAILY 07/15/24 Arformoterol Tartrate [Brovana] 15 mcg NEB BIDRESP #60 vial.neb 07/18/24 Furosemide [Lasix] 20 mg PO DAILY 30 Days #30 tab 07/19/24 predniSONE [Prednisone*] 20 mg PO BID #20 tab 07/22/24 New Medications: Arformoterol Tartrate [Brovana] 15 mcg NEB BIDRESP #60 vial.neb Furosemide [Lasix] 20 mg PO DAILY 30 Days #30 tab predniSONE [Prednisone*] 20 mg PO BID #20 tab Physician Discharge Instructions: -DC IV and DC home -Follow-up with PCP in 1 to 2 weeks -Follow-up with Pulmonary in 1 to 2 weeks -Please call Dr. Perla at [phone] if any questions regarding hospital stay -Please call nursing station at [phone] if any nursing or medication questions -Return to the emergency room if symptoms worsen Diet: Regular Activity: Fall precautions Followup: Tal Stauffer MD [ACTIVE - CAN ADMIT] - 1-2 Weeks Luís Shepherd MD [Primary Care Provider] - 1-2 Weeks Time spent managing pt's care (in minutes): 35
== END 2024-07-22 13:21 | disposition home or self-care (01) | DRG 193 ==
LOC: ER 09:45 → ERHOLD 12:23 → 4TH 13:57
PROVIDERS: ADMIT Hospitalist; ATTEND Hospitalist
PROC: 4A033R1 Measurement of Arterial Saturation, Peripheral, Percutaneous Approach (ICD-10-PCS; principal; 2024-07-15)
DX: J18.9 Pneumonia, unspecified organism (principal); J96.01 Acute respiratory failure with hypoxia; J44.1 Chronic obstructive pulmonary disease with (acute) exacerbation; J44.0 Chronic obstructive pulmonary disease with (acute) lower respiratory infection; J43.8 Other emphysema; E66.9 Obesity, unspecified; I10 Essential (primary) hypertension; K21.9 Gastro-esophageal reflux disease without esophagitis; G47.33 Obstructive sleep apnea (adult) (pediatric); D50.9 Iron deficiency anemia, unspecified; Z90.2 Acquired absence of lung [part of]; Z68.33 Body mass index [BMI] 33.0-33.9, adult; Z11.52 Encounter for screening for COVID-19; Z99.81 Dependence on supplemental oxygen; Z79.82 Long term (current) use of aspirin; Z79.52 Long term (current) use of systemic steroids; Z79.02 Long term (current) use of antithrombotics/antiplatelets; Z87.891 Personal history of nicotine dependence; Z85.118 Personal history of other malignant neoplasm of bronchus and lung
CPT/HCPCS: 36415; 36600; 71045; 71275; 80048; 80053; 80076; 81001; 82728; 82805; 83540; 83605; 83735; 83880; 84466; 84484; 85025; 85610; 86850; 86900; 86901; 87040; 87804; 87811; 93005; 93306; 94640; 94760; 96365; 96366; 96375; 99285; J1940; J2470; J2919; J3475; J7040; J7512; J7605; J7613; J7614; J7644; Q9967